=== PATIENT | male | born 1945 | race Caucasian/White ===

== ENCOUNTER → 2019-09-24 09:05 | Outpatient (CLI) | payer MEDICARE, SELFPAY ==
[2019-09-24 10:25] LABS: Hemoglobin A1C% w Est Avg Glu 5.2 % (4.0-6.0)
== END ==
PROVIDERS: PCP Internal Medicine; Visit Provider Internal Medicine Cardiovascular Disease
DX: R73.9 Hyperglycemia, unspecified (principal)
CPT/HCPCS: 36415; 83036

== ENCOUNTER → 2020-06-22 07:29 | Outpatient (CLI) | payer MEDICARE, SELFPAY ==
[2020-06-22 08:48] LABS: Alanine Aminotransferase 27 IU/L (<50); Albumin Globulin Ratio 1.5 (1.0-2.8); Alkaline Phosphatase 88 U/L (38-126); Aspartate Aminotransferase 35 IU/L (17-59); BUN Creatinine Ratio 27.4 (6-22); Bilirubin Total 0.7 mg/dL (0.2-1.3); Blood Urea Nitrogen 17 mg/dL (9-20); Calcium 9.5 mg/dL (8.4-10.2); Carbon Dioxide 29 mmol/L (22-32); Chloride 104 mmol/L (98-107); Estimated Glomerular Filt Rate > 60.0 mL/min (>60); Globulin 2.7 g/dL (1.7-4.1); Glucose 98 mg/dL (80-110); HEMOLYSIS < 15 (0-50); Potassium 4.4 mmol/L (3.4-5.1); Sodium 137 mmol/L (137-145); Total Protein 6.7 g/dL (6.3-8.2)
== END ==
PROVIDERS: PCP Internal Medicine; Referring Provider Internal Medicine Cardiovascular Disease; Visit Provider Internal Medicine Cardiovascular Disease
DX: E78.00 Pure hypercholesterolemia, unspecified (principal); I25.10 Atherosclerotic heart disease of native coronary artery without angina pectoris; I65.23 Occlusion and stenosis of bilateral carotid arteries
CPT/HCPCS: 36415; 80053; 80061; 83704

== ENCOUNTER → 2021-06-06 08:07 | Outpatient (CLI) | payer MEDICARE, OTHER, SELFPAY ==
[2021-06-06 09:53] LABS: Alanine Aminotransferase 24 IU/L (<50); Albumin 4.2 g/dL (3.5-5.0); Albumin Globulin Ratio 1.8 (1.0-2.8); Alkaline Phosphatase 91 U/L (38-126); Aspartate Aminotransferase 34 IU/L (17-59); BUN Creatinine Ratio 30.9 (6-22); Bilirubin Total 0.8 mg/dL (0.2-1.3); Blood Urea Nitrogen 21 mg/dL (9-20); Calcium 9.4 mg/dL (8.4-10.2); Carbon Dioxide 30 mmol/L (22-32); Chloride 103 mmol/L (98-107); Estimated Glomerular Filt Rate > 60.0 mL/min (>60); Globulin 2.3 g/dL (1.7-4.1); Glucose 94 mg/dL (80-110); HEMOLYSIS < 15 (0-50); Potassium 4.6 mmol/L (3.4-5.1); Sodium 140 mmol/L (137-145); Total Protein 6.5 g/dL (6.3-8.2)
[2021-06-08 08:36] LABS: Cholesterol, Total 162 mg/dL (100-199); HDL-Cholesterol 81 mg/dL (>39); HDL-Particle (Total) 43.6 umol/L (>=30.5); LDL Particle 1088 nmol/L (<1000); LDL Size 20.6 nm (>20.5); LDL-Cholsterol 67 mg/dL (0-99); LP-IR Score <25 (<=45); Small LDL- Particle 439 nmol/L (<=527); Triglycerides 73 mg/dL (0-149)
== END ==
PROVIDERS: PCP Student in an Organized Health Care Education/Training Program; Referring Provider Internal Medicine Cardiovascular Disease; Visit Provider Internal Medicine Cardiovascular Disease
DX: E78.00 Pure hypercholesterolemia, unspecified (principal)
CPT/HCPCS: 36415; 80053; 80061; 83704

== ENCOUNTER → 2021-10-09 08:07 | Outpatient (CLI) | payer MEDICARE, OTHER, SELFPAY ==
[2021-10-09 09:50] LABS: Alanine Aminotransferase 22 IU/L (<50); Albumin 4.2 g/dL (3.5-5.0); Albumin Globulin Ratio 1.9 (1.0-2.8); Alkaline Phosphatase 73 U/L (38-126); Aspartate Aminotransferase 29 IU/L (17-59); BUN Creatinine Ratio 28.8 (6-22); Bilirubin Total 0.7 mg/dL (0.2-1.3); Blood Urea Nitrogen 23 mg/dL (9-20); Calcium 9.5 mg/dL (8.4-10.2); Carbon Dioxide 31 mmol/L (22-32); Chloride 105 mmol/L (98-107); Cholesterol 111 mg/dL (140-199); Estimated Glomerular Filt Rate > 60.0 mL/min (>60); Globulin 2.2 g/dL (1.7-4.1); Glucose 94 mg/dL (80-110); HDL Cholesterol 63 mg/dL (40-60); HEMOLYSIS < 15 (0-50); LDL Cholesterol Calculated 37 mg/dL (<100); Potassium 4.6 mmol/L (3.4-5.1); Sodium 139 mmol/L (137-145); Total Protein 6.4 g/dL (6.3-8.2); Triglycerides 55 mg/dL (35-150)
[2021-10-11 08:14] LABS: Cholesterol, Total 113 mg/dL (100-199); HDL-Cholesterol 63 mg/dL (>39); LDL Particle 573 nmol/L (<1000); LDL Size 19.8 nm (>20.5); LDL-Cholsterol 38 mg/dL (0-99); LP-IR Score <25 (<=45); Small LDL- Particle 386 nmol/L (<=527); Triglycerides 49 mg/dL (0-149)
== END ==
PROVIDERS: PCP Student in an Organized Health Care Education/Training Program; Referring Provider Internal Medicine Cardiovascular Disease; Visit Provider Internal Medicine Cardiovascular Disease
DX: E78.00 Pure hypercholesterolemia, unspecified (principal)
CPT/HCPCS: 36415; 80053; 80061; 83704

== ENCOUNTER 2022-01-23 10:33 | Emergency (ER) | payer MEDICARE, OTHER, SELFPAY ==
[2022-01-23 10:46] VITALS: BP 135/79; PULSE 48; RESP 20; TEMP 36.6; O2SAT 99; BMI 25.8
--- NOTE | 2022-01-23 10:55 | DI.RAD.S_ITS ---
PROCEDURE: XR CHEST 1V INDICATIONS: chest pain TECHNIQUE: One view of the chest was acquired. COMPARISON: [facility], , CHEST 1 VIEW, 01/16/2015, 3:41. FINDINGS: Surgical changes and devices: Sternotomy and CABG. Lungs and pleura: Lungs are clear. No pleural effusions or pneumothorax. Mediastinum: Mediastinal contours appear normal. Heart size is normal. Bones and chest wall: No suspicious bony lesions. Overlying soft tissues appear unremarkable. IMPRESSION: No acute cardiopulmonary disease. Dictated by: Evon Campos M.D. on 01/23/2022 at 11:32 Approved by: Evon Campos M.D. on 01/23/2022 at 11:33
[2022-01-23 11:18] LABS: Add Manual Diff / Slide Review NO; Basophils Absolute Auto 0 /uL (0-100); Basophils Percent Auto 0.5 % (0-2); Eosinophils Absolute Auto 100 /uL (0-450); Eosinophils Percent Auto 1.3 % (2-4); Hematocrit 41.6 % (41-53); Hemoglobin 14.3 g/dL (13.5-17.5); Lymphocytes Absolute Auto 1800 /uL (1100-4500); Lymphocytes Percent Auto 28.7 % (25-40); Mean Corpuscular HGB Conc 34.4 % (30-36); Mean Corpuscular Hemoglobin 33.2 PG (26-34); Mean Corpuscular Volume 96.3 fL (80-100); Monocytes Absolute Auto 600 /uL (0-900); Monocytes Percent Auto 10.2 % (3-14); Neutrophils Absolute Auto 3800 /uL (1500-7000); Neutrophils Percent Auto 59.3 % (50-75); Platelet Count 184 X10^3/uL (150-400); Red Blood Cell Count 4.32 X10^6/uL (4.5-5.9); Red Cell Distribution Width 12.6 % (11.6-14.8); White Blood Cell Count 6.4 X10^3/uL (4.5-11.0)
[2022-01-23 11:28] LABS: Alanine Aminotransferase 23 IU/L (<50); Albumin 4.6 g/dL (3.5-5.0); Albumin Globulin Ratio 1.8 (1.0-2.8); Alkaline Phosphatase 73 U/L (38-126); Aspartate Aminotransferase 30 IU/L (17-59); Bilirubin Total 1.1 mg/dL (0.2-1.3); Blood Urea Nitrogen 21 mg/dL (9-20); Calcium 9.1 mg/dL (8.4-10.2); Carbon Dioxide 29 mmol/L (22-32); Chloride 102 mmol/L (98-107); Creatine Kinase 67 U/L (55-170); Estimated Glomerular Filt Rate > 60 mL/min (>60); Globulin 2.6 g/dL (1.7-4.1); Glucose 99 mg/dL (80-110); HEMOLYSIS < 15 (0-50); Lipase 66 U/L (23-300); Magnesium 2.2 mg/dL (1.6-2.3); Potassium 4.2 mmol/L (3.4-5.1); Sodium 137 mmol/L (137-145); Total Protein 7.2 g/dL (6.3-8.2)
--- NOTE | 2022-01-23 11:36 | ED.GENADULT ---
HPI - General Adult General Chief complaint: Dizziness Stated complaint: off balance and wobblie since yesterday Time Seen by Provider: 01/23/22 11:36 Source: patient Mode of arrival: Family Vehicle History of Present Illness HPI narrative: 76-year-old gentleman with a history of coronary disease, 4 vessel bypass, cervical arthritis and no prior strokes presents complaining that he had an acute dizzy spell approximately 5:00 p.m. last night his noticed that he was a bit more unstable when he got up in the middle of the night and this morning had dramatically increased gait abnormalities with worsening dizziness. He does note that he has had 1 of his 2 cataracts corrected and there is some visual asymmetries because of that. He notes that he usually ?off? in the morning because of arthritic pains. Once he is up and moving around seems to be doing well. He has had some gait instability and has been working with physical therapy and does seem to be making progress. The findings over the last 24 hours are notably different. Review of systems he also complains of fatigue. No fevers, cough, chills, vomiting, diarrhea, significant headaches, abdominal pain, palpitations, orthopnea or exertional dyspnea Related Data Allergies Allergy/AdvReac Type Severity Reaction Status Date / Time No Known Drug Allergies Allergy Verified 01/23/22 10:54 Review of Systems Review of Systems Narrative: Remainder of complete review of systems is otherwise unremarkable except for that included in the HPI. Patient History Medical History (Updated 01/23/22 @ 17:41 by Mely Powers MD) Coronary artery disease Hyperlipidemia Surgical History (Updated 01/23/22 @ 17:35 by Mely Powers MD) Hx of CABG Social History Smoking Status: Former smoker Smoking Status: Former smoker alcohol intake frequency: a few times a month Substance Use Type: does not use Exam Initial Vital Signs Initial Vital Signs: Vital Signs Temperature 97.9 F 01/23/22 10:46 Pulse Rate 48 L 01/23/22 10:46 Respiratory Rate 20 01/23/22 10:46 Blood Pressure 135/79 01/23/22 10:46 Pulse Oximetry 99 01/23/22 10:46 General: Healthy appearing, in no acute distress. Able to give a complete and coherent history. Well-nourished well-developed HEENT: Moist mucous membranes, normal sclera with reactive pupils, Neck: No JVD, supple Respiratory: Lungs are clear to auscultation, no wheezing no rales no rhonchi. Full and symmetrical air movement Cardiac: Regular rate and rhythm. 3/6 murmur is appreciated. No bruits. Abdomen: Soft, nontender, good bowel tones, no flank pain Skin: Warm and dry, no rashes Neurologic: Mild ataxia without significantly wide-based gait. Difficulty with heel-toe walking with mild instability, negative Romberg, no difficulty with limb ataxia. No localizing weakness. NIH score is 0. Extremities: No trauma, well perfused Psych: Cooperative, appropriate insight and affect Course Orders Ordered: ED Orders 01/23/22 10:55 XR chest 1V Stat EKG-12 Lead Stat 01/23/22 11:02 Complete Blood Count AUTO DIFF Stat Comprehensive Metabolic Panel Stat Lipase Stat Magnesium Stat Troponin & CK Cardiac Panel Stat 01/23/22 16:11 MR stroke Stat Vital Signs Vital signs: Vital Signs - 8 hr 01/23/22 10:46 Temperature 97.9 F Pulse Rate 48 L Respiratory Rate 20 Blood Pressure 135/79 Pulse Oximetry 99 Medical Decision Making Lab Data Result diagrams: 01/23/22 11:02 01/23/22 11:02 Labs: Lab Results 01/23/22 01/23/22 Range/Units 11:02 11:02 WBC 6.4 (4.5-11.0) X10^3/uL RBC 4.32 L (4.5-5.9) X10^6/uL Hgb 14.3 (13.5-17.5) g/dL Hct 41.6 (41-53) % MCV 96.3 (80-100) fL MCH 33.2 (26-34) PG MCHC 34.4 (30-36) % RDW 12.6 (11.6-14.8) % Plt Count 184 (150-400) X10^3/uL Neut % (Auto) 59.3 (50-75) % Lymph % (Auto) 28.7 (25-40) % [place] % (Auto) 10.2 (3-14) % Eos % (Auto) 1.3 L (2-4) % Baso % (Auto) 0.5 (0-2) % Neut # (Auto) 3800 (9355-4640) /uL Lymph # (Auto) 1800 (9598-6670) /uL [place] # (Auto) 600 (0-900) /uL Eos # (Auto) 100 (0-450) /uL Baso # (Auto) 0 (0-100) /uL Sodium 137 (137-145) mmol/L Potassium 4.2 (3.4-5.1) mmol/L Chloride 102 (98-107) mmol/L Carbon Dioxide 29 (22-32) mmol/L BUN 21 H (9-20) mg/dL Creatinine 0.75 (0.66-1.25) mg/dL Estimated GFR > 60 (>60) mL/min BUN/Creatinine Ratio 28.0 H (6-22) Glucose 99 (80-110) mg/dL Calcium 9.1 (8.4-10.2) mg/dL Magnesium 2.2 (1.6-2.3) mg/dL Total Bilirubin 1.1 (0.2-1.3) mg/dL AST 30 (17-59) IU/L ALT 23 (<50) IU/L Alkaline Phosphatase 73 (38-126) U/L Total Creatine Kinase 67 (55-170) U/L CK-MB (CK-2) TNP CK-MB (CK-2) Rel Index TNP Troponin I < 0.012 (0.01-0.034) ng/mL Total Protein 7.2 (6.3-8.2) g/dL Albumin 4.6 (3.5-5.0) g/dL Globulin 2.6 (1.7-4.1) g/dL Albumin/Globulin Ratio 1.8 (1.0-2.8) Lipase 66 (23-300) U/L Urine Dip Bedside Urine Glucose Negative Bedside Urine Bilirubin - Negative Bedside Urine Ketone - Negative Urine Specific [place] 1.005 Bedside Urine Occult Blood - Negative Bedside Urine pH 7 Bedside Urine Protein - Negative Bedside Urine Urobilinogen - Negative Bedside Urine Nitrite - Negative Bedside Urine Leukocytes - Negative Esterase Point of care testing: Urine Dip Bedside Urine Glucose Negative Bedside Urine Bilirubin - Negative Bedside Urine Ketone - Negative Urine Specific [place] 1.005 Bedside Urine Occult Blood - Negative Bedside Urine pH 7 Bedside Urine Protein - Negative Bedside Urine Urobilinogen - Negative Bedside Urine Nitrite - Negative Bedside Urine Leukocytes - Negative Esterase MDM Narrative Medical decision making narrative: 76-year-old gentleman with a history of coronary artery disease post CABG complains of acute episode of dizziness at 5:00 p.m. last night and worsening gait instability/ataxia today. Labs are reassuring with no evidence of acute infection. MRI of the brain shows no acute infarct or significant anomalies of require hospitalization or additional workup at this time. He was incidentally noted to have heart murmur on exam today. Have recommended that he follow-up with Neurology regarding the gait instability. He is given copies of today's notes including labs and MRI reports. He is following up with Ophthalmology tomorrow for his 2nd cataract surgery to be scheduled. If recommend that he briefly review a follow-up appointment with his backup operator as he was unaware of the murmur that was noted on today's exam. All findings reviewed with patient and his . Questions were answered and he is safe for home discharge Discharge Plan Departure Patient Disposition: Home Clinical Impression: Ataxia, Dizziness, Heart murmur Instructions: DI for Acute Cerebellar Ataxia Activity Restrictions/Additional Instructions: Thank you for coming in today and for being so patient with the extended wait in the emergency department. Fortunately we were able to facilitate an MRI of your brain. The MRI is reassuring and does not show an acute stroke as an explanation for the dizziness nor slight increase in your gait instability (ataxia) today. As we discussed, in the emergency department I can reassure you that you do not have a life-threatening diagnosis nor need to be admitted to the hospital however you do still frequently need to be seen by your outpatient doctors for definitive diagnosis. That is the case today. I would recommend that you follow-up with your neurologist to see if they have any additional recommendations. I would also recommend continuing physical therapy. An incidental heart murmur was appreciated today. I your unaware of any history of heart murmurs. I would suggest that you discuss this with your backup operator. This does not sound like at a life-threatening murmur but should be further evaluated. If you find that you are getting worse or develop any new symptoms, please feel free to return to the emergency department for further evaluation. Referrals: Tri Mir MD [Primary Care Provider] -
[2022-01-23 11:39] LABS: Troponin I < 0.012 ng/mL (0.01-0.034)
--- NOTE | 2022-01-23 16:11 | DI.MRI.S_ITS ---
PROCEDURE: MR STROKE Pre- and post-contrast brain MRI, non-contrast brain MR angiogram, pre- and postcontrast neck MR angiogram INDICATIONS: acute gait instability and dizziness TECHNIQUE: Brain: Noncontrast axial T1 spin echo, axial T2 fast spin echo, sagittal and axial FLAIR, coronal T2 fast spin echo, axial gradient echo, axial diffusion and ADC through the brain. After the administration of contrast, axial 3D VIBE of the cranial vasculature and brain. Brain MRA: Non-contrast 3-D time of flight MR angiogram, with multiple qiousro-aeetvbrdb-sgiefdljll (MIP) reformats performed. Neck MRA: Axial and sagittal TruFISP through the neck. Coronal dynamic MR angiogram during administration of contrast in the arterial and venous phases, with 3-dimenstional utrpyki-gptzjsnns-wmswlphngo (MIP) reformats constructed from subtraction images. COMPARISON: None. FINDINGS: Image quality: Excellent. BRAIN: CSF spaces: Ventricles are normal in size and shape. Basal cisterns are patent. No extra-axial fluid collections. Brain: No intracranial bleeds or mass effects. Mustafa-white matter interface is normal. Diffusion weighted images show no acute ischemic insults. Brainstem appears normal. Normal intravascular flow voids are present. No abnormal intracranial enhancement. Skull and face: Calvarial marrow signal is normal. Orbits appear normal. Sinuses: Sinuses and mastoids are clear. BRAIN MR ANGIOGRAM: Anterior circulation: Intracranial internal carotid arteries are normal in size and enhancement. The flow within the paired anterior cerebral arteries is normal and symmetric. The flow within the middle cerebral arteries is normal and symmetric. The anterior communicating artery is seen. No stenosis or aneurysms or occlusions Posterior circulation: Normal variant origin of the right posterior cerebral artery off of the anterior circulation. The visualized portions of the vertebral arteries demonstrate normal caliber, and join to form a normal appearing basilar artery. The flow within the posterior cerebral arteries is normal and symmetric. No stenosis or occlusions or aneurysms. NECK MR ANGIOGRAM: Carotids: Great vessels demonstrate a conventional anatomy as they arise from the aortic arch. The origins of the common carotid arteries appear patent. The calibers and courses of both common carotid arteries are normal. The bifurcation regions appear normal bilaterally. The internal carotid arteries demonstrate normal course and caliber. Posterior circulation: The origins of the vertebral arteries appear patent. More superior portions of both vertebral arteries demonstrate normal course and caliber, and join to form a normal appearing basilar artery. Miscellaneous: Subclavian arteries appear patent. Pre-contrast images through the neck show no soft tissue abnormalities. IMPRESSION: BRAIN MRI: 1. No evidence acute stroke, hemorrhage, or mass. 2. Age-related volume loss and moderate small vessel ischemic change. BRAIN MR ANGIOGRAM: Normal variant origin of the right posterior cerebral artery off the anterior circulation. Otherwise unremarkable, with stenosis, filling defect, occlusion, or aneurysm. NECK MR ANGIOGRAM: Unremarkable. Widely patent carotids. Dictated by: Desmond Jaramillo M.D. on 01/23/2022 at 17:04 Approved by: Desmond Jaramillo M.D. on 01/23/2022 at 17:11
[2022-01-23 17:44] VITALS: PULSE 47; O2SAT 93
[2022-01-23 17:48] VITALS: BP 136/69; PULSE 50; O2SAT 99
[2022-01-23 17:59] VITALS: BP 136/69; PULSE 49; RESP 18; O2SAT 100
== END 2022-01-23 18:04 | disposition home or self-care (01) ==
PROVIDERS: Emergency Provider Emergency Medicine; PCP Student in an Organized Health Care Education/Training Program
DX: R27.0 Ataxia, unspecified (principal); R01.1 Cardiac murmur, unspecified; R53.83 Other fatigue
CPT/HCPCS: 36415; 70548; 70553; 71045; 80053; 81003; 82550; 83690; 83735; 84484; 85025; 93005; 99284; A9579

== ENCOUNTER → 2022-04-23 07:11 | Outpatient (CLI) | payer MEDICARE, OTHER, SELFPAY ==
[2022-04-23 08:32] LABS: Add Manual Diff / Slide Review NO; Basophils Absolute Auto 0 /uL (0-100); Basophils Percent Auto 0.5 % (0-2); Eosinophils Absolute Auto 200 /uL (0-450); Eosinophils Percent Auto 3.5 % (2-4); Hematocrit 40.3 % (41-53); Hemoglobin 13.9 g/dL (13.5-17.5); Lymphocytes Absolute Auto 1500 /uL (1100-4500); Lymphocytes Percent Auto 28.8 % (25-40); Mean Corpuscular HGB Conc 34.5 % (30-36); Mean Corpuscular Hemoglobin 33.2 PG (26-34); Monocytes Absolute Auto 600 /uL (0-900); Monocytes Percent Auto 12.5 % (3-14); Neutrophils Absolute Auto 2800 /uL (1500-7000); Neutrophils Percent Auto 54.7 % (50-75); Platelet Count 187 X10^3/uL (150-400); Red Cell Distribution Width 13.4 % (11.6-14.8); White Blood Cell Count 5.2 X10^3/uL (4.5-11.0)
[2022-04-23 08:43] LABS: Hemoglobin A1C% w Est Avg Glu 5.5 % (4.0-6.0)
[2022-04-23 10:30] LABS: Alanine Aminotransferase 24 IU/L (<50); Albumin Globulin Ratio 1.7 (1.0-2.8); Alkaline Phosphatase 73 U/L (38-126); Aspartate Aminotransferase 31 IU/L (17-59); BUN Creatinine Ratio 31.9 (6-22); Bilirubin Total 0.8 mg/dL (0.2-1.3); Blood Urea Nitrogen 22 mg/dL (9-20); Calcium 9.2 mg/dL (8.4-10.2); Carbon Dioxide 31 mmol/L (22-32); Chloride 102 mmol/L (98-107); Cholesterol 127 mg/dL (140-199); Estimated Glomerular Filt Rate > 60 mL/min (>60); Globulin 2.4 g/dL (1.7-4.1); Glucose 93 mg/dL (80-110); HDL Cholesterol 69 mg/dL (40-60); HEMOLYSIS < 15 (0-50); LDL Cholesterol Calculated 45 mg/dL (<100); Potassium 4.4 mmol/L (3.4-5.1); Sodium 139 mmol/L (137-145); Total Protein 6.4 g/dL (6.3-8.2); Triglycerides 63 mg/dL (35-150)
== END ==
PROVIDERS: PCP Family Medicine; Referring Provider Internal Medicine; Visit Provider Internal Medicine
DX: I10 Essential (primary) hypertension (principal); R53.83 Other fatigue; I65.23 Occlusion and stenosis of bilateral carotid arteries; E78.3 Hyperchylomicronemia; R42 Dizziness and giddiness
CPT/HCPCS: 36415; 80053; 80061; 83036; 84443; 85025

== ENCOUNTER → 2022-07-20 09:01 | Outpatient (CLI) | payer MEDICARE, OTHER, SELFPAY ==
[2022-07-20 11:25] LABS: Alanine Aminotransferase 27 IU/L (<50); Albumin 4.2 g/dL (3.5-5.0); Albumin Globulin Ratio 1.6 (1.0-2.8); Alkaline Phosphatase 83 U/L (38-126); Aspartate Aminotransferase 31 IU/L (17-59); BUN Creatinine Ratio 29.7 (6-22); Bilirubin Total 0.9 mg/dL (0.2-1.3); Blood Urea Nitrogen 22 mg/dL (9-20); Calcium 9.3 mg/dL (8.4-10.2); Carbon Dioxide 27 mmol/L (22-32); Chloride 103 mmol/L (98-107); Estimated Glomerular Filt Rate > 60 mL/min (>60); Globulin 2.7 g/dL (1.7-4.1); Glucose 91 mg/dL (80-110); HEMOLYSIS < 15 (0-50); Potassium 4.1 mmol/L (3.4-5.1); Sodium 138 mmol/L (137-145); Total Protein 6.9 g/dL (6.3-8.2)
[2022-07-22 12:01] LABS: Cholesterol, Total 164 mg/dL (100-199); HDL-Cholesterol 75 mg/dL (>39); LDL Particle 897 nmol/L (<1000); LDL Size 20.6 nm (>20.5); LDL-Cholsterol 70 mg/dL (0-99); LP-IR Score 41 (<=45); Small LDL- Particle 475 nmol/L (<=527); Triglycerides 107 mg/dL (0-149)
== END ==
PROVIDERS: PCP Family Medicine; Referring Provider Internal Medicine Cardiovascular Disease; Visit Provider Internal Medicine Cardiovascular Disease
DX: E78.00 Pure hypercholesterolemia, unspecified (principal)
CPT/HCPCS: 36415; 80053; 80061; 83704

== ENCOUNTER → 2023-01-07 10:00 | Outpatient (CLI) | payer MEDICARE, OTHER, SELFPAY ==
[2023-01-07 11:07] LABS: Alanine Aminotransferase 26 IU/L (<50); Albumin 4.3 g/dL (3.5-5.0); Albumin Globulin Ratio 1.7 (1.0-2.8); Alkaline Phosphatase 84 U/L (38-126); Aspartate Aminotransferase 31 IU/L (17-59); BUN Creatinine Ratio 34.2 (6-22); Bilirubin Total 0.7 mg/dL (0.2-1.3); Blood Urea Nitrogen 26 mg/dL (9-20); Carbon Dioxide 30 mmol/L (22-32); Chloride 103 mmol/L (98-107); Estimated Glomerular Filt Rate > 60 mL/min (>60); Globulin 2.6 g/dL (1.7-4.1); Glucose 92 mg/dL (80-110); HEMOLYSIS < 15 (0-50); Potassium 4.1 mmol/L (3.4-5.1); Sodium 138 mmol/L (137-145); Total Protein 6.9 g/dL (6.3-8.2)
[2023-01-10 14:58] LABS: Cholesterol, Total 123 mg/dL (100-199); HDL-Cholesterol 74 mg/dL (>39); HDL-Particle (Total) 41.8 umol/L (>=30.5); Historical Reading Comment: (.); LDL Particle 683 nmol/L (<1000); LDL-Cholsterol 36 mg/dL (0-99); LP-IR Score 39 (<=45); Small LDL- Particle 441 nmol/L (<=527); Triglycerides 62 mg/dL (0-149)
== END ==
PROVIDERS: PCP Internal Medicine; Referring Provider Internal Medicine Cardiovascular Disease; Visit Provider Internal Medicine Cardiovascular Disease
DX: E78.00 Pure hypercholesterolemia, unspecified (principal)
CPT/HCPCS: 36415; 80053; 80061; 83704

== ENCOUNTER → 2023-03-18 17:36 | Outpatient (CLI) | payer MEDICARE, OTHER, SELFPAY ==
--- NOTE | 2023-03-18 17:38 | DI.RAD.S_ITS ---
PROCEDURE: XR RIBS LT MIN 3V W CXR1V INDICATIONS: left rib pain TECHNIQUE: 2 views of the left ribs were acquired, along with a single view chest. COMPARISON: [facility], , XR CHEST 1V, 01/23/2022, 11:05. FINDINGS: Surgical changes and devices: Prior median sternotomy. Bones and chest wall: Acute mildly displaced fractures of the left posterior 4th, 5th, 6th ribs. Lungs and pleura: No pleural effusions or pneumothorax. Lungs appear clear. Mediastinum: Mediastinal contours appear normal. Heart size is normal. IMPRESSION: Acute mildly displaced fractures of the left posterior 4th, 5th, 6th ribs. No pneumothorax identified. Dictated by: Faraz Rain M.D. on 03/19/2023 at 18:07 Approved by: Faraz Rain M.D. on 03/19/2023 at 18:14
== END ==
PROVIDERS: PCP Internal Medicine; Referring Provider Internal Medicine; Visit Provider Internal Medicine
DX: S22.42XA Multiple fractures of ribs, left side, initial encounter for closed fracture (principal); R07.81 Pleurodynia
CPT/HCPCS: 71101

== ENCOUNTER → 2023-04-09 09:03 | Outpatient (CLI) | payer MEDICARE, OTHER, SELFPAY ==
--- NOTE | 2023-04-09 09:04 | DI.RAD.S_ITS ---
PROCEDURE: XR CHEST 2V INDICATIONS: chest pain/rib fx TECHNIQUE: 2 views of the chest were acquired. COMPARISON: [facility], [place], XR CHEST 1V, 01/23/2022, 11:05. [facility], [place], CHEST 1 VIEW, 01/16/2015, 3:41. [facility], CR, XR RIBS LT MIN 3V W CXR1V, 03/18/2023, 17:56. FINDINGS: Surgical changes and devices: Sternotomy wires. Lungs and pleura: No dense consolidation or pleural effusion. Mediastinum: Heart size is within normal limits. Bones and chest wall: Mildly displaced fractures again seen of the left upper posterior ribs, relatively unchanged allowing for differences in technique. IMPRESSION: Allowing for differences in technique, unchanged appearance of left posterior upper rib fractures. Dictated by: Hamlet Campoverde M.D. on 04/09/2023 at 13:28 Approved by: Hamlet Campoverde M.D. on 04/09/2023 at 13:30
[2023-04-09 11:26] LABS: Hemoglobin 14.1 g/dL (13.5-17.5); Mean Corpuscular HGB Conc 34.3 % (30-36); Mean Corpuscular Hemoglobin 33.2 PG (26-34); Mean Corpuscular Volume 96.9 fL (80-100); Platelet Count 210 X10^3/uL (150-400); Red Blood Cell Count 4.24 X10^6/uL (4.5-5.9); Red Cell Distribution Width 12.8 % (11.6-14.8); White Blood Cell Count 5.8 X10^3/uL (4.5-11.0)
[2023-04-09 12:03] LABS: Alanine Aminotransferase 32 IU/L (<50); Albumin 4.3 g/dL (3.5-5.0); Albumin Globulin Ratio 1.6 (1.0-2.8); Alkaline Phosphatase 109 U/L (38-126); Aspartate Aminotransferase 44 IU/L (17-59); BUN Creatinine Ratio 30.9 (6-22); Bilirubin Total 0.9 mg/dL (0.2-1.3); Blood Urea Nitrogen 21 mg/dL (9-20); Calcium 9.1 mg/dL (8.4-10.2); Carbon Dioxide 30 mmol/L (22-32); Chloride 102 mmol/L (98-107); Estimated Glomerular Filt Rate > 60 mL/min (>60); Globulin 2.7 g/dL (1.7-4.1); Glucose 96 mg/dL (80-110); HEMOLYSIS 23 (0-50); Potassium 4.3 mmol/L (3.4-5.1); Sodium 139 mmol/L (137-145)
== END ==
PROVIDERS: PCP Internal Medicine; Referring Provider Internal Medicine; Visit Provider Internal Medicine
DX: S22.42XA Multiple fractures of ribs, left side, initial encounter for closed fracture (principal); R10.12 Left upper quadrant pain
CPT/HCPCS: 36415; 71046; 80053; 85027

== ENCOUNTER → 2023-04-11 07:56 | Outpatient (CLI) | payer MEDICARE, OTHER, SELFPAY ==
--- NOTE | 2023-04-11 07:58 | DI.CT.S_ITS ---
PROCEDURE: CT ABDOMEN PELVIS W CON INDICATIONS: LUQ pain, trauma TECHNIQUE: After the administration of oral and intravenous contrast, axial sections were acquired from the lung bases to the pubic symphysis. Coronal and sagittal reformats were performed. For radiation dose reduction, the following was used: automated exposure control, adjustment of mA and/or kV according to patient size. COMPARISON:None. FINDINGS: Image quality: Excellent. Lung bases: 7 mm solid nodule, right lower lobe (series 3, image 24). Heart: No significant findings. ABDOMEN: Liver: Subcentimeter hypoattenuating lesion, too small to characterize by CT. Gallbladder: Unremarkable. Biliary ducts: Unremarkable. Pancreas: Unremarkable. Spleen: Unremarkable. Adrenal Glands: 3 cm right adrenal nodule. Kidneys and Ureters: Unremarkable. Stomach and Bowel: Stomach, small bowel loops, and colon are unremarkable. Peritoneum: No abnormal intraperitoneal fluid. No free air. Ventral Wall: No hernia. Abdominal Nodes: No retroperitoneal or mesenteric adenopathy by size criteria. Vessels: Aorta and inferior vena cava are normal in size. PELVIS: Pelvic Organs: Unremarkable. Bladder: Unremarkable. Pelvic Nodes: No enlarged lymph nodes. Miscellaneous: No inguinal hernias are seen. Bones: Healing left lateral 10th, 9th, 7th rib fractures. Grade 1 anterolisthesis of L5 on S1 secondary to facet arthrosis. Multilevel degenerative disc disease. IMPRESSION: Healing left lateral 7th, 9th and 10th rib fractures. No findings to explain the patient's bloating. Right adrenal nodule with indeterminate attenuation measuring 3 cm. Recommend dedicated adrenal CT or MRI (adrenal mass protocol). Dictated by: Shawn Hutchison M.D. on 04/11/2023 at 11:37 Approved by: Shawn Hutchison M.D. on 04/11/2023 at 11:42
== END ==
PROVIDERS: PCP Internal Medicine; Referring Provider Internal Medicine; Visit Provider Internal Medicine
DX: E27.9 Disorder of adrenal gland, unspecified (principal); R10.12 Left upper quadrant pain; S22.42XD Multiple fractures of ribs, left side, subsequent encounter for fracture with routine healing
CPT/HCPCS: 74177; Q9967

== ENCOUNTER → 2023-04-23 11:46 | Outpatient (CLI) | payer MEDICARE, OTHER, SELFPAY ==
--- NOTE | 2023-04-23 11:47 | DI.CT.S_ITS ---
PROCEDURE: CT ABDOMEN ADRENAL PROTOCOL INDICATIONS: adrenal mass TECHNIQUE: Noncontrast 3 mm thick sections acquired from the diaphragms to the iliac crests. After the administration of intravenous contrast, 3 mm thick venous-phase and 15-minute delayed images acquired from the diaphragms to the iliac crests. For radiation dose reduction, the following was used: automated exposure control, adjustment of mA and/or kV according to patient size. COMPARISON: None. FINDINGS: Image quality: Excellent. Lung bases: Lung bases are clear. Heart size is normal. Adrenal glands: 3.3 cm right adrenal nodule with benign attenuation (-9 Hounsfield unit), most consistent with a benign adrenal adenoma. Solid organs: Liver is normal in size and enhancement. A subcentimeter hypoattenuating lesions, too small to characterize by CT. Gallbladder is unremarkable . Biliary system is non dilated. Pancreas enhances normally. Spleen is normal in size and enhancement. Kidneys are normal in size and enhancement. No hydronephrosis or nephrolithiasis. Peritoneum and bowel: Unenhanced bowel loops are normal in caliber and wall thickness. No free fluid or air. Nodes and vessels: No retroperitoneal or mesenteric adenopathy by size criteria. Aorta and inferior vena cava are normal in size. Miscellaneous: No ventral hernias. Bones: No suspicious bony lesions. No vertebral body compression fractures. Grade 1 anterolisthesis of L5 on S1. Grade 1 retrolisthesis of L3 on L4, L2 on L3 and L1 on L2. IMPRESSION: 3.3 cm right adrenal adenoma by Hounsfield units criteria (-9 Hounsfield unit). Dictated by: Shawn Hutchison M.D. on 04/23/2023 at 13:58 Approved by: Shawn Hutchison M.D. on 04/23/2023 at 14:01
== END ==
PROVIDERS: PCP Internal Medicine; Referring Provider Internal Medicine; Visit Provider Internal Medicine
DX: D35.01 Benign neoplasm of right adrenal gland (principal)
CPT/HCPCS: 74170; Q9967

== ENCOUNTER → 2023-07-17 07:34 | Outpatient (CLI) | payer MEDICARE, OTHER, SELFPAY ==
--- NOTE | 2023-07-17 07:35 | DI.RAD.S_ITS ---
PROCEDURE: XR SHOULDER RT MIN 2V INDICATIONS: right shoulder injury/pain TECHNIQUE: 3 views of the shoulder were acquired. COMPARISON: None. FINDINGS: Bones: No fractures or dislocations. No suspicious bony lesions. Visualized ribs appear intact. Midline sternal wires Soft tissues: No suspicious soft tissue calcifications. IMPRESSION: No acute bony abnormality. Approved by: Nirav Machado M.D. on 07/17/2023 at 18:35
== END ==
PROVIDERS: PCP Internal Medicine; Referring Provider Internal Medicine; Visit Provider Internal Medicine
DX: S49.91XA Unspecified injury of right shoulder and upper arm, initial encounter (principal); M25.511 Pain in right shoulder; X58.XXXA Exposure to other specified factors, initial encounter
CPT/HCPCS: 73030

== ENCOUNTER → 2024-01-02 08:04 | Outpatient (CLI) | payer MEDICARE, OTHER, SELFPAY ==
--- NOTE | 2024-01-02 08:05 | DI.ECHO.S_ITS ---
[facility] : : [address] : : [place] : : [id number] : : Phone: [phone] Echocardiogram Report + + :Name: JANE MINER Study Date: 01/02/2024 Height: 71 in : :Hospital ReadingLocation: Weight: 178 lb : : Gender: Male BSA: 2.0 m2 : :: 1945 Age: 78 yrs BP: 132/80 mmHg: :Reason For Study: DISEASE OF [place] CORONARY ARTERY : :Ordering Physician: : :SHAHIDA DURAN Performed By: Damián Nolasco : :Referring: UNSPECIFIED : + + Interpretation Summary The ejection fraction is estimated to be 50-55%. Possible mid inferior hypokinesis The right ventricle is moderately dilated. The interatrial septum bows toward left atrium consistent with elevated right atrial pressure. There is mild tricuspid regurgitation. The right ventricular systolic pressure is estimated to be at least 22.6 mmHg based on an estimated right atrial pressure of 3 mm Hg. There is mild to moderate aortic regurgitation. Procedure: A two-dimensional transthoracic echocardiogram with color flow and Doppler was performed. The study quality was technically adequate. Comparison is made with the echocardiogram of 01/04/2015. The patient was in normal sinus rhythm during the exam. The heart rate ranged between 48-74 bpm during the study. Left Ventricle: The left ventricle is normal in size and wall thickness. The ejection fraction is estimated to be 50-55%. Possible mid inferior hypokinesis. Right Ventricle: The right ventricle is moderately dilated. The right ventricular systolic function is normal. Atria: The left atrium is moderately dilated. The right atrium is mildly dilated. The interatrial septum grossly appears intact with no obvious evidence for an atrial septal defect. The interatrial septum bows toward left atrium consistent with elevated right atrial pressure. Mitral Valve: The mitral valve is normal in structure and function. There is no mitral valve stenosis. There is trace mitral regurgitation. Aortic Valve: The aortic valve is trileaflet. The aortic valve is mildly calcified. There is no aortic valve stenosis. There is mild to moderate aortic regurgitation. Tricuspid Valve: There has been no significant change since the previous study. There is no tricuspid stenosis. There is mild tricuspid regurgitation. The right ventricular systolic pressure is estimated to be at least 22.6 mmHg based on an estimated right atrial pressure of 3 mm Hg. Pulmonic Valve: The pulmonic valve is not well visualized. There is no pulmonic valvular stenosis. There is a trace or physiologic amount of pulmonic regurgitation. Great Vessels: The aortic root is normal size. The dimensions of the ascending aorta are normal. The IVC is of normal diameter and collapses greater than 50% with a sniff. This suggests a low right atrial pressure of 3 mm Hg. Pericardium/ Pleura There is no pericardial effusion. There is no pleural effusion. MMode/2D Measurements & Calculations LVIDd: 4.9 cm LVOT diam: 3.1 cm LVIDs: 3.2 cm Ao root diam: 2.6 cm FS: 34.7 % asc Aorta Diam: 3.1 cm IVSd: 0.97 cm Ao Arch Diam (Prox Trans): 2.6 cm LVPWd: 1.1 cm LV solis. diameter/BSA (cm/m^2): 2.5 LV sys. diameter/BSA (cm/m^2): 1.6 LA A2 area: 19.5 cm2 RA long axis: 5.1 cm LA A4 area: 19.9 cm2 RA area: 17.2 cm2 LA length (vol): 5.3 cm RA vol: 48.6 ml LA vol: 62.6 ml RA : 24.2 ml/m2 LA vol index: 31.2 ml/m2 IVC diam: 1.6 cm RVD1 (basal): 4.8 cm RVD2 (mid): 4.3 cm TAPSE: 2.0 cm Doppler Measurements & Calculations Ao V2 max: 221.7 cm/sec LVOT Max Pal: 132.6 cm/sec Ao V2 mean: 156.7 cm/sec LV V1 max P.0 mmHg Ao max P.7 mmHg LV V1 VTI: 28.0 cm Ao mean P.9 mmHg FABRIZIO(I,D): 4.2 cm2 Ao V2 VTI: 50.7 cm FABRIZIO(V,D): 4.5 cm2 sev ratio: 0.55 FABRIZIO indexed to BSA (cm^2/m^2): 2.1 AI P1/2t: 899.1 msec AI dec slope: 127.4 cm/sec2 MV E max pal: 61.5 cm/sec TR max pal: 221.2 cm/sec MV A max pal: 75.0 cm/sec TR max P.6 mmHg MV E/A: 0.82 PA V2 max: 163.6 cm/sec Med Peak E' Pal: 5.5 cm/sec PA V2 mean: 116.7 cm/sec E/E' med: 11.2 PA mean P.9 mmHg Lat Peak E' Pal: 6.8 cm/sec PA pr(Accel): 22.5 mmHg E/E' lat: 9.1 E/e' average: 10.1 MV dec time: 0.22 sec SV(LVOT): 210.7 ml Reading Physician:12:49 PM
== END ==
PROVIDERS: PCP Internal Medicine; Referring Provider Internal Medicine Cardiovascular Disease; Visit Provider Internal Medicine Cardiovascular Disease
DX: I25.119 Atherosclerotic heart disease of native coronary artery with unspecified angina pectoris (principal); I08.2 Rheumatic disorders of both aortic and tricuspid valves
CPT/HCPCS: 93306

== ENCOUNTER → 2024-02-06 09:44 | Outpatient (CLI) | payer MEDICARE, OTHER, SELFPAY ==
[2024-02-06 10:48] LABS: Hematocrit 42.1 % (41-53); Hemoglobin 14.5 g/dL (13.5-17.5); Mean Corpuscular HGB Conc 34.4 % (30-36); Mean Corpuscular Hemoglobin 33.5 PG (26-34); Mean Corpuscular Volume 97.2 fL (80-100); Platelet Count 216 X10^3/uL (150-400); Red Blood Cell Count 4.33 X10^6/uL (4.5-5.9); Red Cell Distribution Width 12.8 % (11.6-14.8); White Blood Cell Count 6.6 X10^3/uL (4.5-11.0)
[2024-02-06 11:12] LABS: Alanine Aminotransferase 26 IU/L (<50); Albumin 4.4 g/dL (3.5-5.0); Albumin Globulin Ratio 1.9 (1.0-2.8); Alkaline Phosphatase 96 U/L (38-126); Aspartate Aminotransferase 34 IU/L (17-59); BUN Creatinine Ratio 36.7 (6-22); Bilirubin Total 0.9 mg/dL (0.2-1.3); Blood Urea Nitrogen 29 mg/dL (9-20); Calcium 9.5 mg/dL (8.4-10.2); Carbon Dioxide 32 mmol/L (22-32); Chloride 104 mmol/L (98-107); Creatine Kinase 132 U/L (55-170); Estimated Glomerular Filt Rate > 60 mL/min (>60); Globulin 2.3 g/dL (1.7-4.1); Glucose 89 mg/dL (80-110); HEMOLYSIS < 15 (0-50); Potassium 4.9 mmol/L (3.4-5.1); Sodium 138 mmol/L (137-145); Total Protein 6.7 g/dL (6.3-8.2)
== END ==
PROVIDERS: PCP Internal Medicine; Referring Provider Internal Medicine; Visit Provider Internal Medicine
DX: R53.83 Other fatigue (principal); M60.9 Myositis, unspecified
CPT/HCPCS: 36415; 80053; 82550; 84443; 85027

== ENCOUNTER → 2024-03-18 09:19 | Outpatient (CLI) | payer MEDICARE, OTHER, SELFPAY ==
[2024-03-18 12:25] LABS: Alanine Aminotransferase 25 IU/L (<50); Albumin Globulin Ratio 1.6 (1.0-2.8); Alkaline Phosphatase 95 U/L (38-126); Aspartate Aminotransferase 32 IU/L (17-59); BUN Creatinine Ratio 31.2 (6-22); Bilirubin Total 0.9 mg/dL (0.2-1.3); Blood Urea Nitrogen 24 mg/dL (9-20); Calcium 8.8 mg/dL (8.4-10.2); Carbon Dioxide 28 mmol/L (22-32); Chloride 104 mmol/L (98-107); Estimated Glomerular Filt Rate > 60 mL/min (>60); Globulin 2.5 g/dL (1.7-4.1); Glucose 92 mg/dL (80-110); HEMOLYSIS < 15 (0-50); Potassium 4.4 mmol/L (3.4-5.1); Sodium 136 mmol/L (137-145); Total Protein 6.5 g/dL (6.3-8.2)
[2024-03-20 08:37] LABS: Cholesterol, Total 147 mg/dL (100-199); HDL-Cholesterol 78 mg/dL (>39); HDL-Particle (Total) 45.6 umol/L (>=30.5); Historical Reading Comment: (.); LDL Particle 922 nmol/L (<1000); LDL Size 20.3 nm (>20.5); LDL-Cholsterol 55 mg/dL (0-99); LP-IR Score 33 (<=45); Small LDL- Particle 529 nmol/L (<=527); Triglycerides 73 mg/dL (0-149)
== END ==
PROVIDERS: PCP Internal Medicine; Referring Provider Internal Medicine Cardiovascular Disease; Visit Provider Internal Medicine Cardiovascular Disease
DX: E78.00 Pure hypercholesterolemia, unspecified (principal)
CPT/HCPCS: 36415; 80053; 80061; 83704

== ENCOUNTER 2024-07-26 10:28 | Observation (INO) | payer MEDICARE, OTHER, SELFPAY ==
[2024-07-26] VITALS (19 sets, daily range): BP systolic 117–162; BP diastolic 43–114; PULSE 45–54; RESP 13–22; TEMP 36.3–36.6; O2SAT 96–100; BMI 25.1
--- NOTE | 2024-07-26 09:42 | DI.MRI.S_ITS ---
PROCEDURE: MR HEAD/BRAIN WO CON INDICATIONS: Right face, arm and leg numbness TECHNIQUE: Non-contrast axial T1 spin echo, axial T2 fast spin echo, sagittal and axial FLAIR, coronal T2 fast spin echo, axial gradient echo, axial diffusion and ADC through the brain. COMPARISON: [facility], CT, CT STROKE, 07/26/2024, 10:44. FINDINGS: Image quality: Excellent. CSF spaces: Ventricles appear symmetric in size and shape. Basal cisterns are patent. No extra-axial fluid collections. Brain: No intracranial bleeds or mass effects. 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 There is cerebral volume loss for age. There are periventricular and deep white matter chronic small vessel ischemic changes. Brainstem appears normal. Diffusion-weighted images show no acute infarct. No chronic ischemic insults. Normal intravascular flow voids are present. Skull and face: Calvarial bone marrow is normal in signal. Orbits are normal. Sinuses: Sinuses and mastoids are clear. IMPRESSION: 1. No acute infarction. No intracranial bleed, midline shift or mass effect. 2. Age related volume loss and moderate periventricular white matter small vessel chronic ischemic changes. 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 Dictated by: Logan Figueroa M.D. on 07/27/2024 at 10:10 Approved by: Logan Figueroa M.D. on 07/27/2024 at 10:11
--- NOTE | 2024-07-26 10:35 | EKG_ITS ---
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
--- NOTE | 2024-07-26 10:35 | ED_ITS ---
HPI - General Adult General Chief complaint: Neuro Symptoms/Deficit Stated complaint: stroke symptoms Time Seen by Provider: 07/26/24 10:35 History of Present Illness HPI narrative: 79-year-old gentleman post CABG, NSTEMI, hyperlipidemia, BPH, insomnia, arthritis pain, notes from February of 2024 indicate that he had been having some right leg muscle weakness and atrophy. Patient notes that he is quite active exercising regularly. Exercise this morning finished at 9:00 a.m. was feeling normal shortly thereafter he noticed some numbness on the right side of his face and increasing right-sided weakness Related Data Home Medications Medication Instructions Recorded Confirmed aspirin 81 mg chewable tablet (St 81 mg PO DAILY 02/26/22 07/26/24 Clint Aspirin) multivitamin (Daily Multi-Vitamin 1 tab PO DAILY 02/26/22 07/26/24 tablet) rosuvastatin 40 mg tablet 40 mg PO DAILY 02/26/22 07/26/24 cholecalciferol (vitamin D3) 25 2,000 unit PO DAILY 11/09/22 07/26/24 mcg (1,000 unit) capsule coenzyme Q10 300 mg capsule (Co 300 mg PO BID 11/09/22 07/26/24 Q-10) nitroglycerin 0.4 mg sublingual 0.4 mg sublingual Q5-15M PRN chest 11/09/22 07/26/24 tablet pain mirabegron 25 mg tablet,extended 25 mg PO DAILY 02/06/24 07/26/24 release 24 hr (Myrbetriq) Previous Rx's Medication Instructions Recorded tizanidine 2 mg tablet 2 mg PO TID PRN muscle spasticity 07/02/24 #60 tabs Allergies Allergy/AdvReac Type Severity Reaction Status Date / Time No Known Drug Allergies Allergy Verified 02/06/24 08:48 Review of Systems Review of Systems Narrative: Pertinent positive and negative findings as per HPI Patient History Medical History (Updated 07/26/24 @ 11:58 by Mely Powers MD) Decreased hearing Shoulder pain (~2003) Foot pain (~1999) Measles (~1953) Chicken pox (~1954) Frequent urination (~2020) Aortic stenosis (~1998) BPH w urinary obs/LUTS Chronic insomnia Primary osteoarthritis involving multiple joints (~2016) Mixed hyperlipidemia Overactive bladder History of tobacco use Urge incontinence Hx of osteoporosis Hx of coronary artery disease Coronary artery disease (~1998) Hyperlipidemia Surgical History (Updated 07/26/24 @ 12:09 by Ynes Aranda RN) Anesthesia History of hernia repair (~01/1970) History of cataract removal with insertion of prosthetic lens (~2020) Hx of vasectomy History of bladder surgery Hx of CABG (~2014) Family History Father Hyperlipidemia Congestive heart failure Sister Cerebral palsy Seizure Grandfather Asthma Social History marital status: details: (Sandrine), no children, 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 number of children: 0 household members: spouse leisure activities: exercise Smoking Status: Former smoker alcohol intake: current caffeine: No Type(s) of exercise: walking, aerobic and bicycling frequency: 3-4 times per week duration: > 90 minutes/day Smoking Status: Former smoker alcohol intake frequency: a few times a month Substance Use Type: does not use Exam Initial Vital Signs Initial Vital Signs: Vital Signs Temperature 97.3 F L 07/26/24 10:30 Pulse Rate 52 L 07/26/24 10:30 Respiratory Rate 18 07/26/24 10:30 Blood Pressure 159/114 H 07/26/24 10:30 Pulse Oximetry 99 07/26/24 10:30 Oxygen Delivery Method Room Air 07/26/24 10:30 General: Healthy appearing, in no acute distress. Able to give a complete and coherent history. Well-nourished well-developed HEENT: Moist mucous membranes, normal sclera with reactive pupils, Neck: No JVD, supple Respiratory: Lungs are clear to auscultation, no wheezing no rales no rhonchi. Full and symmetrical air movement Cardiac: Regular rate and rhythm no murmurs no bruits Abdomen: Soft, nontender, good bowel tones, no flank pain Skin: Warm and dry, no rashes Neurologic: Grossly neurologically intact with no obvious asymmetries or abnormalities Extremities: No trauma, well perfused Psych: Cooperative, appropriate insight and affect Course Orders Ordered: ED Orders 07/26/24 10:35 Complete Blood Count AUTO DIFF Stat Comprehensive Metabolic Panel Stat Ethanol (ETOH) Stat PTT Partial Thromboplastin Mahad Stat Prothrombin Time INR Stat Troponin & CK Cardiac Panel Stat 07/26/24 10:[address] angio head and neck Stat EKG-12 Lead Stat 07/26/24 11:00 Urinalysis and Microscopic Stat Urine Drug Screen, Rapid Stat 07/26/24 11:22 COVID19 -Nasal RAPID Stat Acetaminophen (Acetaminophen 325 Mg Tablet) 650 mg PO Q6H PRN PRN Reason: Fever/Mild Pain (1-3) Aspirin (Aspirin Ec 81 Mg Tablet) 81 mg PO DAILY [facility] Atorvastatin Calcium (Atorvastatin 20 Mg Tablet) 80 mg PO DAILY [facility] Multivitamins (Multivitamin 1 Tablet) 1 tab PO DAILY [facility] Naloxone HCl (Naloxone 0.4 Mg/Ml Vial) 0.2 mg IV Q2MIN PRN PRN Reason: Opiate Reversal Nitroglycerin (Nitroglycerin 0.4 Mg Sl Tab) 0.4 mg SL Q5M PRN PRN Reason: chest pain Mirabegron [ Myrbetriq] 25 Mg Tab Er 24 Hr 25 mg PO DAILY [facility] Ondansetron HCl (Ondansetron 4 Mg Odt) 4 mg PO Q8HR PRN PRN Reason: Nausea And Vomiting Tizanidine HCl (Tizanidine 4 Mg Tablet) 2 mg PO TID PRN PRN Reason: muscle spasticity Vital Signs Vital signs: Vital Signs - 8 hr 07/26/24 11:00 07/26/24 11:02 07/26/24 11:02 Pulse Rate 51 L 50 L Respiratory Rate 17 17 Blood Pressure 138/64 Pulse Oximetry 100 99 Oxygen Delivery Method Room Air 07/26/24 11:30 07/26/24 11:30 07/26/24 12:00 Pulse Rate 47 L 48 L Respiratory Rate 14 18 Blood Pressure 136/63 Pulse Oximetry 99 100 Oxygen Delivery Method Room Air 07/26/24 12:00 07/26/24 12:30 07/26/24 12:31 Pulse Rate 48 L Respiratory Rate 17 Blood Pressure 151/70 H 135/63 Pulse Oximetry 97 Oxygen Delivery Method Room Air 07/26/24 12:31 07/26/24 13:00 07/26/24 13:01 Pulse Rate 48 L 49 L 47 L Respiratory Rate 13 18 16 Blood Pressure Pulse Oximetry 100 98 100 Oxygen Delivery Method Room Air 07/26/24 13:01 07/26/24 13:30 07/26/24 13:31 Pulse Rate 54 L 53 L Respiratory Rate 19 22 Blood Pressure 159/70 H 137/64 Pulse Oximetry 98 99 Oxygen Delivery Method 07/26/24 13:31 07/26/24 14:00 07/26/24 14:00 Pulse Rate 51 L Respiratory Rate 16 Blood Pressure 137/64 122/61 Pulse Oximetry 97 Oxygen Delivery Method Medical Decision Making Medical Records Medical records narrative: Lab Test results independently reviewed as above. Pertinent findings: CBC is unremarkable Chemistries are reassuring Troponin is undetectable Independently reviewed EKG: Sinus bradycardia at a rate of 51 with no ischemic changes Imaging studies independently reviewed: Consultations: Treatments: Patient passed his swallow evaluation in the emergency department Re-evaluations: Seen on arrival, EKG, line, labs [address] Forde, no acute bleed or LVO 1057 Patient is re-evaluated with symptoms significantly improving. Because stroke symptoms are rapidly improving, he is not a tPA candidate. This was discussed with the patient and his Discussion: Lab Data 07/26/24 10:35 07/26/24 10:35 Labs: Lab Results 07/26/24 07/26/24 07/26/24 Range/Units 10:35 11:00 11:00 WBC 7.1 (4.5-11.0) X10^3/uL RBC 4.63 (4.5-5.9) X10^6/uL Hgb 15.2 (13.5-17.5) g/dL Hct 44.9 (41-53) % MCV 96.9 (80-100) fL MCH 32.9 (26-34) PG MCHC 33.9 (30-36) % RDW 13.2 (11.6-14.8) % Plt Count 203 (150-400) X10^3/uL Neut % (Auto) 63.3 (50-75) % Lymph % (Auto) 23.0 L (25-40) % [place] % (Auto) 11.9 (3-14) % Eos % (Auto) 1.4 L (2-4) % Baso % (Auto) 0.4 (0-2) % Neut # (Auto) 4500 (6772-8140) /uL Lymph # (Auto) 1600 (3788-1517) /uL [place] # (Auto) 800 (0-900) /uL Eos # (Auto) 100 (0-450) /uL Baso # (Auto) 0 (0-100) /uL PT 10.8 (9.4-12.5) SECONDS INR 1.0 (0.9-1.3) APTT 37 H (25.1-36.5) SECONDS Sodium 138 (137-145) mmol/L Potassium 4.0 (3.4-5.1) mmol/L Chloride 103 (98-107) mmol/L Carbon Dioxide 30 (22-32) mmol/L BUN 18 (9-20) mg/dL Creatinine 0.83 (0.66-1.25) mg/dL Estimated GFR > 60 (>60) mL/min BUN/Creatinine Ratio 21.7 (6-22) Glucose 93 (80-110) mg/dL Calcium 9.7 (8.4-10.2) mg/dL Total Bilirubin 1.2 (0.2-1.3) mg/dL AST 41 (17-59) IU/L ALT 28 (<50) IU/L Alkaline Phosphatase 87 (38-126) U/L Total Creatine Kinase 103 (55-170) U/L Troponin I < 0.012 (0.01-0.034) ng/mL Total Protein 7.4 (6.3-8.2) g/dL Albumin 4.7 (3.5-5.0) g/dL Globulin 2.7 (1.7-4.1) g/dL Albumin/Globulin Ratio 1.7 (1.0-2.8) Triglycerides 90 (35-150) mg/dL Cholesterol 143 (140-199) mg/dL LDL Cholesterol, Calc 48 (<100) mg/dL HDL Cholesterol 77 H (40-60) mg/dL Urine Color Yellow Urine Appearance Clear Urine pH 8.0 Normal (4.5-8.0) Ur Specific [place] 1.010 (1.000-1.035) Urine Protein Negative (Negative) Urine Glucose (UA) Negative (Negative) g/dL Urine Ketones Negative (NEGATIVE) Urine Occult Blood Negative (Negative) Urine Nitrate Negative (Negative) Urine Bilirubin Negative (NEGATIVE) Urine Urobilinogen 0.2 (0.2) E.U./dL Ur Leukocyte Esterase Negative (NEGATIVE) Urine RBC None seen (0-5/HPF) Urine WBC None seen (0-5/HPF) Ur Squamous Epith Cells None seen (0-5/HPF) Urine Bacteria None seen (None) Ur Culture Indicated? Cult not indicated Vol Urine Centrifuged 10ml (spun) U Opiates 300ng/mL cut Negative (Negative) Ur Oxycodone Screen Negative (Negative) Urine Methadone Screen Negative (Negative) Ur Barbiturates Screen Negative (Negative) U Tricyclic Antidepress Negative (Negative) Ur Phencyclidine Scrn Negative (Negative) Ur Amphetamines Screen Negative (Negative) U Methamphetamines Scrn Negative (Negative) Ur MDMA Scrn (Ecstasy) Negative (Negative) U Benzodiazepines Scrn Negative (Negative) Urine Cocaine Screen Negative (Negative) U Marijuana (THC) Screen Negative (Negative) Urine Specific [place] Normal (Normal) Ethyl Alcohol < 10 ( - 10) mg/dL Ur Creatinine Normal (Normal) SARS-CoV-2 (PCR) (Negative) 07/26/24 Range/Units 11:22 WBC (4.5-11.0) X10^3/uL RBC (4.5-5.9) X10^6/uL Hgb (13.5-17.5) g/dL Hct (41-53) % MCV (80-100) fL MCH (26-34) PG MCHC (30-36) % RDW (11.6-14.8) % Plt Count (150-400) X10^3/uL Neut % (Auto) (50-75) % Lymph % (Auto) (25-40) % [place] % (Auto) (3-14) % Eos % (Auto) (2-4) % Baso % (Auto) (0-2) % Neut # (Auto) (6139-6724) /uL Lymph # (Auto) (1084-5745) /uL [place] # (Auto) (0-900) /uL Eos # (Auto) (0-450) /uL Baso # (Auto) (0-100) /uL PT (9.4-12.5) SECONDS INR (0.9-1.3) APTT (25.1-36.5) SECONDS Sodium (137-145) mmol/L Potassium (3.4-5.1) mmol/L Chloride (98-107) mmol/L Carbon Dioxide (22-32) mmol/L BUN (9-20) mg/dL Creatinine (0.66-1.25) mg/dL Estimated GFR (>60) mL/min BUN/Creatinine Ratio (6-22) Glucose (80-110) mg/dL Calcium (8.4-10.2) mg/dL Total Bilirubin (0.2-1.3) mg/dL AST (17-59) IU/L ALT (<50) IU/L Alkaline Phosphatase (38-126) U/L Total Creatine Kinase (55-170) U/L Troponin I (0.01-0.034) ng/mL Total Protein (6.3-8.2) g/dL Albumin (3.5-5.0) g/dL Globulin (1.7-4.1) g/dL Albumin/Globulin Ratio (1.0-2.8) Triglycerides (35-150) mg/dL Cholesterol (140-199) mg/dL LDL Cholesterol, Calc (<100) mg/dL HDL Cholesterol (40-60) mg/dL Urine Color Urine Appearance Urine pH (4.5-8.0) Ur Specific [place] (1.000-1.035) Urine Protein (Negative) Urine Glucose (UA) (Negative) g/dL Urine Ketones (NEGATIVE) Urine Occult Blood (Negative) Urine Nitrate (Negative) Urine Bilirubin (NEGATIVE) Urine Urobilinogen (0.2) E.U./dL Ur Leukocyte Esterase (NEGATIVE) Urine RBC (0-5/HPF) Urine WBC (0-5/HPF) Ur Squamous Epith Cells (0-5/HPF) Urine Bacteria (None) Ur Culture Indicated? Vol Urine Centrifuged U Opiates 300ng/mL cut (Negative) Ur Oxycodone Screen (Negative) Urine Methadone Screen (Negative) Ur Barbiturates Screen (Negative) U Tricyclic Antidepress (Negative) Ur Phencyclidine Scrn (Negative) Ur Amphetamines Screen (Negative) U Methamphetamines Scrn (Negative) Ur MDMA Scrn (Ecstasy) (Negative) U Benzodiazepines Scrn (Negative) Urine Cocaine Screen (Negative) U Marijuana (THC) Screen (Negative) Urine Specific [place] (Normal) Ethyl Alcohol ( - 10) mg/dL Ur Creatinine (Normal) SARS-CoV-2 (PCR) Negative (Negative) Point of Care Testing Glucose POC 84 Point of care testing: Point of Care Testing Glucose POC [address] scan - head: Radiologist's Impression: PROCEDURE: CT STROKE INDICATIONS: stroke TECHNIQUE: Noncontrast 4.5 mm thick angled axial sections acquired from the foramen magnum to the vertex, with coronal reformats. For radiation dose reduction, the following was used: automated exposure control, adjustment of mA and/or kV according to patient size. COMPARISON: [facility], MR, MR STROKE, 01/23/2022, 16:24. [facility], CT, CT ANGIO HEAD AND NECK, 07/26/2024, 10:44. FINDINGS: Image quality: Diagnostic. CSF spaces: Basal cisterns are patent. No extra-axial fluid collections. The ventricles are symmetric in size and shape. Brain: No intracranial bleeds or masses. There is cerebral volume loss for age, with resultant ventricular and sulcal prominence. There are periventricular and deep white matter chronic small vessel ischemic changes. There is a prominent sulcus seen involving the right occipital lobe, which is stable over time. There is intracranial internal carotid artery atherosclerosis. Skull and face: Calvarium and visualized facial bones appear intact, without suspicious lesions. Sinuses: Visualized sinuses and mastoids are clear. IMPRESSION: No acute intracranial hemorrhage is seen. No acute intracranial pathology. Note: Case discussed by telephone with Dr. Mely Powers at 10:55 a.m. [facility] time on July 26, 2024. This study fulfills neurological imaging criteria for inclusion or exclusion of acute stroke therapies based on available published neurological guidelines. Dictated by: Bandar Forde M.D. on 07/26/2024 at 9:53 CT angio Head and neck: Radiologist's Impression: PROCEDURE: CT ANGIO HEAD AND NECK INDICATIONS: stroke TECHNIQUE: After the administration of intravenous contrast, 1 mm thick sections acquired from the aortic arch through the [place] of [place]. 3-dimensional xtvizwh-lbtwkwaug-ciqgzfvqqk (MIP) and/or volume rendering reformats were acquired of the central intracranial vasculature and neck separately. For radiation dose reduction, the following was used: automated exposure control, adjustment of mA and/or kV according to patient size. COMPARISON: [facility], CT, CT STROKE, 07/26/2024, 10:44. [facility], MR, MR STROKE, 01/23/2022, 16:24. FINDINGS: Image quality: Diagnostic. BRAIN: CSF spaces: Ventricles are normal in size and shape. Basal cisterns are patent. No extra-axial fluid collections. Brain: No acute abnormality of the brain can be seen. Skull and face: Calvarium and facial bones appear intact, without suspicious lesions. Orbits appear normal. Sinuses: Sinuses and mastoids are clear. HEAD CT ANGIOGRAPHY: Anterior circulation: Intracranial internal carotid arteries are normal in size and flow. The flow within the paired anterior cerebral arteries is normal and symmetric. The flow within the middle cerebral arteries is normal and symmetric. The anterior communicating artery is seen. No aneurysms are seen. Posterior circulation: Visualized portions of the vertebral arteries demonstrate normal caliber, and join to form a normal appearing basilar artery. There is a prominent right posterior communicating artery seen, with an accompanying diminutive right P1 segment. This is attributed to a type origin of the right posterior cerebral artery, which is considered to be a normal developmental variant of typically no clinical consequence. The flow within the posterior cerebral arteries is normal and symmetric. No aneurysms are seen. NECK CT ANGIOGRAPHY: Carotid system: The great vessels demonstrate a conventional anatomy as they arise from the aortic arch. The origins of the common carotid arteries appear patent. The common carotid arteries demonstrate normal caliber and courses. The bifurcation regions demonstrate atherosclerotic irregularity and calcification. There is 50% narrowing seen involving the origin of the right internal carotid artery. On the left, there is 30-40% narrowing seen involving the left proximal internal carotid artery. The more distal internal carotid arteries demonstrate normal course and caliber. Posterior circulation: The origins of the vertebral arteries both appear widely patent. The more superior extracranial portions of both vertebral arteries also demonstrate normal courses and calibers. They join to form a normal appearing basilar artery. Soft tissues: Visualized neck soft tissues demonstrate no suspicious abnormalities. Bones: No suspicious bony lesions. Visualized cervical spine appears normally aligned. Sternotomy wires are seen. IMPRESSION: No significant intracranial arterial abnormality is seen. Kfzv-vd-xnvlmjgd narrowing can be seen involving the proximal internal carotid arteries. No significant vertebral artery abnormality is seen. Additional findings: Odeg-du-mycenysc cervical spine degenerative change Sternotomy wires Note: Case discussed by telephone with Dr. Mely Powers at 10:55 a.m. [facility] time on July 26, 2024. Any quantitative measurements of stenosis were performed using NASCET criteria. Dictated by: Bandar Forde M.D. on 07/26/2024 at 10:[address] [facility] Narrative Medical decision making narrative: CC: Acute right-sided weakness, last known well 9:00 a.m. Complicating co-morbidities: Coronary artery disease, hypertension, hyperlipidemia Data collected from: patient, Medical records reviewed: Primary care notes from February of 2024 are reviewed Differential considered: Stroke, infection, doubt Schneider's palsy given the extremity symptoms Exam is remarkable for paresthesia right side of face arm leg. Some difficulty with gait due to right-sided weakness Lab Test results independently reviewed as above. Pertinent findings: CBC is unremarkable Chemistries are reassuring Troponin is undetectable Independently reviewed EKG: Sinus bradycardia at a rate of 51 with no ischemic changes Imaging studies independently reviewed: CT of the head is unremarkable CT angiogram does not show large vessel occlusion Consultations: Treatments: Patient passed his swallow evaluation in the emergency department Re-evaluations: Seen on arrival, EKG, line, labs [address] Forde, no acute bleed or LVO 1057 Patient is re-evaluated with symptoms significantly improving. Because stroke symptoms are rapidly improving, he is not a tPA candidate. This was discussed with the patient and his Discussed with pharmacy Discussion: 79-year-old gentleman with a history coronary artery disease currently on an aspirin, hypertension hyperlipidemia who presents with acute right-sided paresthesia that resolves with in approximately 90 minutes of presentation. Initially had had some right arm and leg weakness. This too has resolved. Head CT and CTA are unremarkable. At this point we will recommend admission for remainder of his stroke workup including echocardiogram, MRI and maximizing medical management for stroke prevention Discharge Plan Departure Patient Disposition: Admitted as Observation Clinical Impression: Stroke Qualifiers: CVA mechanism: unspecified Qualified Code(s): I63.9 - Cerebral infarction, unspecified Admit Date/Time: 07/26/24 14:03 Admit Provider: Leatha Mora
[2024-07-26 10:50] LABS: Add Manual Diff / Slide Review NO; Basophils Absolute Auto 0 /uL (0-100); Basophils Percent Auto 0.4 % (0-2); Eosinophils Absolute Auto 100 /uL (0-450); Eosinophils Percent Auto 1.4 % (2-4); Hematocrit 44.9 % (41-53); Hemoglobin 15.2 g/dL (13.5-17.5); Lymphocytes Absolute Auto 1600 /uL (1100-4500); Mean Corpuscular HGB Conc 33.9 % (30-36); Mean Corpuscular Hemoglobin 32.9 PG (26-34); Mean Corpuscular Volume 96.9 fL (80-100); Monocytes Absolute Auto 800 /uL (0-900); Monocytes Percent Auto 11.9 % (3-14); Neutrophils Absolute Auto 4500 /uL (1500-7000); Neutrophils Percent Auto 63.3 % (50-75); Platelet Count 203 X10^3/uL (150-400); Red Blood Cell Count 4.63 X10^6/uL (4.5-5.9); Red Cell Distribution Width 13.2 % (11.6-14.8); White Blood Cell Count 7.1 X10^3/uL (4.5-11.0)
[2024-07-26 10:54] LABS: Prothrombin Time 10.8 SECONDS (9.4-12.5)
[2024-07-26 10:56] LABS: PTT Partial Thromboplastin Tim 37 SECONDS (25.1-36.5)
[2024-07-26 10:58] LABS: Alanine Aminotransferase 28 IU/L (<50); Albumin 4.7 g/dL (3.5-5.0); Albumin Globulin Ratio 1.7 (1.0-2.8); Alkaline Phosphatase 87 U/L (38-126); Aspartate Aminotransferase 41 IU/L (17-59); BUN Creatinine Ratio 21.7 (6-22); Bilirubin Total 1.2 mg/dL (0.2-1.3); Blood Urea Nitrogen 18 mg/dL (9-20); Calcium 9.7 mg/dL (8.4-10.2); Carbon Dioxide 30 mmol/L (22-32); Chloride 103 mmol/L (98-107); Creatine Kinase 103 U/L (55-170); Estimated Glomerular Filt Rate > 60 mL/min (>60); Ethanol (ETOH) < 10 mg/dL; Globulin 2.7 g/dL (1.7-4.1); Glucose 93 mg/dL (80-110); HEMOLYSIS < 15 (0-50); Sodium 138 mmol/L (137-145); Total Protein 7.4 g/dL (6.3-8.2)
[2024-07-26 11:09] LABS: Troponin I < 0.012 ng/mL (0.01-0.034)
[2024-07-26 11:20] LABS: Appearance Urine UA CLEAR; Bilirubin Urine UA NEGATIVE (NEGATIVE); Color Urine UA YELLOW; Glucose Urine UA NEGATIVE (Negative); Ketones Urine UA NEGATIVE (NEGATIVE); Leukocyte Esterase Urine UA NEGATIVE (NEGATIVE); Nitrite Urine UA NEGATIVE (Negative); Occult Blood Urine UA NEGATIVE (Negative); Protein Urine UA NEGATIVE (Negative); Urobilinogen Urine UA 0.2 E.U./dL (0.2)
[2024-07-26 11:26] LABS: Ur Creatinine Normal (Normal); Ur Specific Gravity Normal (Normal); Urine Cocaine Negative (Negative); Urine Tetrahydrocannabinol Negative (Negative); Urine pH Normal (Normal)
[2024-07-26 11:27] LABS: UR Morphine/Opiate cutoff 300 Negative (Negative); Urine Amphetamines Negative (Negative); Urine Barbiturates Negative (Negative); Urine Benzodiazepines Negative (Negative); Urine MDMA Negative (Negative); Urine Methadone Negative (Negative); Urine Methamphetamines Negative (Negative); Urine Oxycodone Negative (Negative); Urine Phencyclidine Negative (Negative); Urine Tricyclic Antidepressant Negative (Negative)
[2024-07-26 11:36] LABS: Bacteria Urine None Seen; Culture Indicated Urine Cult Not Indicated; RBC Urine None Seen (0-5/HPF); Squamous Epithelial Cell Urine None Seen (0-5/HPF); Urine Volume 10mL (spun); WBC Urine None Seen (0-5/HPF)
[2024-07-26 11:49] LABS: COVID19 -Nasal RAPID Negative (Negative)
--- NOTE | 2024-07-26 13:15 | PC.NURSE ---
intermittant right face @ cheek with slight numbness but no change of sensation from left side of face that comes and goes for a few minutes and no precipitating factors.
--- NOTE | 2024-07-26 15:41 | DI.ECHO.S_ITS ---
[place] +---------+ Hospital : : [address] : : [place] : : [id number] : : Phone: [phone] Echocardiogram Report + + :Name: JANE MINER Study Date: 07/27/2024 Height: 70 in : :Hospital ReadingLocation: Weight: 175 lb : : Gender: Male BSA: 2.0 m2 : :: 1945 Age: 79 yrs BP: 146/57 mmHg: :Reason For Study: CVA SXS : :Ordering Physician: FLORES, : :FRANCISCO J Performed By: Geovanna Delgadillo : :Referring: FRANCISCO J TANNER : + + Interpretation Summary The left ventricle is normal in size and wall thickness. Left ventricular systolic function is normal. The ejection fraction is estimated to be 50-55%. There is mid inferior wall hypokinesis. Compared to the prior exam, the left ventricular wall motion has not changed. Diastolic parameters suggest probable normal left ventricular diastolic function and normal filling pressures. The right ventricle is not well visualized. The right ventricular systolic function is normal. The right ventricular systolic pressure is estimated to be at least 26 mmHg based on an estimated right atrial pressure of 3 mm Hg. The left atrium is mildly dilated. There is mild mitral regurgitation. There is mild to moderate aortic regurgitation. The aortic root is normal size. Procedure: A two-dimensional transthoracic echocardiogram with color flow and Doppler was performed. The study quality was technically adequate. Comparison is made with the echocardiogram of 01/02/2024. The patient was in sinus bradycardia with heart rates between 44-47 bpm during the exam. Left Ventricle: The left ventricle is normal in size and wall thickness. Left ventricular systolic function is normal. The ejection fraction is estimated to be 50-55%. There is mid inferior wall hypokinesis. Compared to the prior exam, the left ventricular wall motion has not changed. Diastolic parameters suggest probable normal left ventricular diastolic function and normal filling pressures. Right Ventricle: The right ventricle is not well visualized. The right ventricle is grossly normal size. The right ventricular systolic function is normal. Atria: The left atrium is mildly dilated. Right atrial size is normal. There is no Doppler evidence for an interatrial shunt. Mitral Valve: The mitral valve is normal in structure and function. There is mild mitral regurgitation. There are multiple regurgitant jets present. Aortic Valve: The aortic valve is mildly calcified. There is mild aortic valve sclerosis. There is mildly reduced leaflet mobility. The peak aortic velocity is 2.2 m/sec. The aortic valve mean gradient is 11 mmHg. The calculated aortic valve area is 2.6 cm2. There is mild to moderate aortic regurgitation. Tricuspid Valve: The tricuspid valve is normal in structure and function. There is trace tricuspid regurgitation. The right ventricular systolic pressure is estimated to be at least 26 mmHg based on an estimated right atrial pressure of 3 mm Hg. Pulmonic Valve: The pulmonic valve leaflets are thin and pliable; valve motion is normal. There is no pulmonic valvular regurgitation. Great Vessels: The aortic root is normal size. The dimensions of the ascending aorta are normal. The IVC is of normal diameter and collapses greater than 50% with a sniff. This suggests a low right atrial pressure of 3 mm Hg. Pericardium/ Pleura There is no pericardial effusion. There is no pleural effusion. MMode/2D Measurements & Calculations LVIDd: 5.5 cm LVOT diam: 2.3 cm LVIDs: 3.6 cm Ao root diam: 3.2 cm FS: 34.8 % asc Aorta Diam: 3.1 cm IVSd: 0.66 cm Ao Arch Diam (Prox Trans): 2.8 cm LVPWd: 0.93 cm LV solis. diameter/BSA (cm/m^2): 2.8 LV sys. diameter/BSA (cm/m^2): 1.8 LA A2 area: 23.4 cm2 RA long axis: 5.2 cm LA A4 area: 18.4 cm2 RA area: 18.4 cm2 LA length (vol): 5.0 cm RA vol: 55.5 ml LA vol: 73.8 ml RA : 28.2 ml/m2 LA vol index: 37.4 ml/m2 IVC diam: 1.8 cm TAPSE: 1.8 cm Doppler Measurements & Calculations Ao V2 max: 220.4 cm/sec LVOT Max Pal: 131.2 cm/sec Ao V2 mean: 153.8 cm/sec LV V1 max P.9 mmHg Ao max P.1 mmHg LV V1 VTI: 29.6 cm Ao mean P.3 mmHg FABRIZIO(I,D): 2.5 cm2 Ao V2 VTI: 51.4 cm FABRIZIO(V,D): 2.6 cm2 sev ratio: 0.58 FABRIZIO indexed to BSA (cm^2/m^2): 1.3 MV E max pal: 65.0 cm/sec TR max pal: 239.0 cm/sec MV A max pal: 66.6 cm/sec TR max P.9 mmHg MV E/A: 0.98 PA V2 max: 125.4 cm/sec Med Peak E' Pal: 8.4 cm/sec PA V2 mean: 84.0 cm/sec E/E' med: 7.7 PA mean P.2 mmHg Lat Peak E' Pal: 6.5 cm/sec PA pr(Accel): 0.22 mmHg E/E' lat: 10.0 E/e' average: 8.9 MV dec time: 0.24 sec SV(LVOT): 127.4 ml Reading Physician:03:17 PM
[2024-07-26 16:01] LABS: Cholesterol 143 mg/dL (140-199); HDL Cholesterol 77 mg/dL (40-60); LDL Cholesterol Calculated 48 mg/dL (<100); Triglycerides 90 mg/dL (35-150)
--- NOTE | 2024-07-26 16:28 | P.HP_ITS ---
History of Present Illness History of Present Illness Chief complaint: stroke symptoms Narrative: 71-year-old male with hypertension, hyperlipidemia, coronary artery disease status post CABGx 5 vessels in 2015, osteoporosis, urge incontinence, BPH, history of tobacco dependence (quit in 1989) who presented to the emergency department today complaining of right face, arm and leg numbness. Patient reports he was exercising today per his usual routine. Was walking on an incline on his treadmill at a somewhat vigorous pace. He followed that with lifting weights. Approximately 30 minutes later, he felt the right side of his face become warm, followed by his right arm and leg. He developed some numbness in his hand. He also complained to his of feeling a bit dizzy. He notes no previous history of these symptoms. His recently completed her BLS class and had teaching about stroke symptoms. She was not certain about the numbness but was able to look it up and found that this could be a stroke and subsequently had him sent to the emergency department. By the time he arrived in the emergency department, his NIH score was 1. Dr. Grant reported his findings were very minimal. He did have a slightly ataxic gait. On arrival temp was 97.3?, heart rate 52, BP 159/114, O2 sats 99% in room air. Over the course of his time in the emergency department, his heart rate 47-52. He reported baseline resting heart rate around 50 to 55. Over the course of the time in the emergency department, his symptoms completely resolved. Laboratories revealed a essentially normal CBC with exception of a slightly low lymphocyte count at 23% and slightly low eosinophil count at 1.4%. PT and INR were within normal limits. Chemistry panel within normal limits. Troponin I less than 0.012. UA was within normal limits. Urine toxicology screen was negative, alcohol level negative, COVID screen negative. Head CT revealed no acute intracranial hemorrhage. No acute intracranial pathology. CTA revealed 50% narrowing of the right internal carotid artery and 30-40% narrowing of the left proximal internal carotid artery. No significant intracranial arterial abnormality. No significant vertebral arterial abnormality noted. Echocardiogram from December of this year revealed an EF of 50- 55%, mid inferior hypokinesis, moderately dilated right ventricle, elevated right atrial pressure, mild tricuspid regurgitation, [id number] aortic regurgitation. EKG revealed a sinus bradycardia with a rate of 51, first-degree AV block with PACs. Currently, patient reports his symptoms have fully resolved. He does complain of intermittent leg cramps at night. He does take tizanidine for those when they happen. He has not taken any tizanidine for the last week and a half or 2. He does not take any rate-controlling medications. He states he did undergo a stress echo which he reports was within normal limits in March of this year. He also had a ZIO patch during which he did have symptoms but no events at the time he recorded symptoms. He was advised there were no other abnormalities or arrhythmias identified. He denies any lightheadedness since coming up to the floor. He has had heart rates in the 44-47 range with normal blood pressures documented. No chest pain, tightness or pressure. No shortness of breath. No nausea. No further neurologic symptoms. He did have multiple questions with regard to code status/cardiopulmonary resuscitation/ with dignity laws/advanced directives. [facility] Medical History (Updated 07/26/24 @ 11:58 by Mely Powers MD) Decreased hearing Shoulder pain (~2003) Foot pain (~1999) Measles (~1953) Chicken pox (~1954) Frequent urination (~2020) Aortic stenosis (~1998) BPH w urinary obs/LUTS Chronic insomnia Primary osteoarthritis involving multiple joints (~2016) Mixed hyperlipidemia Overactive bladder History of tobacco use Urge incontinence Hx of osteoporosis Hx of coronary artery disease Coronary artery disease (~1998) Hyperlipidemia Surgical History (Updated 07/26/24 @ 12:09 by Ynes Aranda RN) Anesthesia History of hernia repair (~01/1970) History of cataract removal with insertion of prosthetic lens (~2020) Hx of vasectomy History of bladder surgery Hx of CABG (~2014) Family History Father Hyperlipidemia Congestive heart failure Sister Cerebral palsy Seizure Grandfather Asthma Social History marital status: details: (Sandrine), no children, retired [employer] number of children: 0 household members: spouse leisure activities: exercise Smoking Status: Former smoker alcohol intake: current caffeine: No Type(s) of exercise: walking, aerobic and bicycling frequency: 3-4 times per week duration: > 90 minutes/day Meds Home Medications and Allergies Home Medications Medication Instructions Recorded Confirmed Type aspirin 81 mg chewable tablet (St 81 mg PO DAILY 02/26/22 07/26/24 History Clint Aspirin) multivitamin (Daily Multi-Vitamin 1 tab PO DAILY 02/26/22 07/26/24 History tablet) rosuvastatin 40 mg tablet 40 mg PO DAILY 02/26/22 07/26/24 History cholecalciferol (vitamin D3) 25 2,000 unit PO DAILY 11/09/22 07/26/24 History mcg (1,000 unit) capsule coenzyme Q10 300 mg capsule (Co 300 mg PO BID 11/09/22 07/26/24 History Q-10) nitroglycerin 0.4 mg sublingual 0.4 mg sublingual Q5-15M PRN chest 11/09/22 07/26/24 History tablet pain mirabegron 25 mg tablet,extended 25 mg PO DAILY 02/06/24 07/26/24 History release 24 hr (Myrbetriq) tizanidine 2 mg tablet 2 mg PO TID PRN muscle spasticity 07/02/24 07/26/24 Rx #60 tabs Allergies Allergy/AdvReac Type Severity Reaction Status Date / Time No Known Drug Allergies Allergy Verified 02/06/24 08:48 Review of Systems Review of Systems Narrative: As noted above, otherwise All other systems were reviewed negative Exam Vital Signs (past 8 hours): - 07/26/24 10:30 07/26/24 10:32 07/26/24 10:33 Temperature 97.3 F L 97.3 F L Pulse Rate 52 L Respiratory Rate 18 16 Blood Pressure 159/114 H 159/114 H Pulse Oximetry 99 98 Oxygen Delivery Method Room Air Room Air 07/26/24 10:33 07/26/24 10:37 07/26/24 10:37 Temperature Pulse Rate 54 L 50 L Respiratory Rate 18 Blood Pressure 142/66 H Pulse Oximetry 98 96 Oxygen Delivery Method Room Air 07/26/24 10:55 07/26/24 10:55 07/26/24 11:00 Temperature Pulse Rate 52 L 51 L Respiratory Rate 15 17 Blood Pressure 156/69 H Pulse Oximetry 98 100 Oxygen Delivery Method 07/26/24 11:02 07/26/24 11:02 07/26/24 11:30 Temperature Pulse Rate 50 L 47 L Respiratory Rate 17 14 Blood Pressure 138/64 Pulse Oximetry 99 99 Oxygen Delivery Method Room Air 07/26/24 11:30 07/26/24 12:00 07/26/24 12:00 Temperature Pulse Rate 48 L Respiratory Rate 18 Blood Pressure 136/63 151/70 H Pulse Oximetry 100 Oxygen Delivery Method Room Air 07/26/24 12:30 07/26/24 12:31 07/26/24 12:31 Temperature Pulse Rate 48 L 48 L Respiratory Rate 17 13 Blood Pressure 135/63 Pulse Oximetry 97 100 Oxygen Delivery Method Room Air 07/26/24 13:00 07/26/24 13:01 07/26/24 13:01 Temperature Pulse Rate 49 L 47 L Respiratory Rate 18 16 Blood Pressure 159/70 H Pulse Oximetry 98 100 Oxygen Delivery Method Room Air 07/26/24 13:30 07/26/24 13:31 07/26/24 13:31 Temperature Pulse Rate 54 L 53 L Respiratory Rate 19 22 Blood Pressure 137/64 137/64 Pulse Oximetry 98 99 Oxygen Delivery Method 07/26/24 14:00 07/26/24 14:00 Temperature Pulse Rate 51 L Respiratory Rate 16 Blood Pressure 122/61 Pulse Oximetry 97 Oxygen Delivery Method Oxygen Delivery Method Room Air Narrative Exam Narrative: GEN: Elderly male, very pleasant, Alert and oriented x3, no acute distress HEENT: Normocephalic, face symmetric, pupils equal round reactive to light, extraocular movements intact, sclerae anicteric, conjunctiva clear, nares patent, oropharynx reveals an intact soft and hard palate with moist mucous membranes, dentition is fair NECK: Supple, no lymphadenopathy, thyroid without enlargement or nodularity, carotids no bruits CHEST: Respiratory excursions symmetric, clear to auscultation bilaterally CV: Bradycardic with regular rhythm, no murmurs, rubs, gallops, PMI nondisplaced ABD: Soft, nontender, nondistended, bowel sounds present in all 4 quadrants, no organomegaly or masses appreciated EXTR: Warm, well perfused, no clubbing/cyanosis/edema SKIN: Warm and dry, without rash NEURO: Alert and oriented x3, normal gait, no facial droop noted, moving about the room without any difficult, no weakness noted. PSYCH: Mood and affect is within normal limits, judgment and insight are appropriate Objective Labs 07/26/24 10:35 07/26/24 10:35 Labs: Laboratory Results - last 24 hr 07/26/24 07/26/24 07/26/24 10:35 11:00 11:00 WBC 7.1 RBC 4.63 Hgb 15.2 Hct 44.9 MCV 96.9 MCH 32.9 MCHC 33.9 RDW 13.2 Plt Count 203 Neut % (Auto) 63.3 Lymph % (Auto) 23.[address] [place] % (Auto) 11.9 Eos % (Auto) 1.4 L Baso % (Auto) 0.4 Neut # (Auto) 4500 Lymph # (Auto) 1600 [place] # (Auto) 800 Eos # (Auto) 100 Baso # (Auto) 0 PT 10.8 INR 1.0 APTT 37 H Sodium 138 Potassium 4.0 Chloride 103 Carbon Dioxide 30 BUN 18 Creatinine 0.83 Estimated GFR > 60 BUN/Creatinine Ratio 21.7 Glucose 93 Calcium 9.7 Total Bilirubin 1.2 AST 41 ALT 28 Alkaline Phosphatase 87 Total Creatine Kinase 103 Troponin I < 0.012 Total Protein 7.4 Albumin 4.7 Globulin 2.7 Albumin/Globulin Ratio 1.7 Triglycerides 90 Cholesterol 143 LDL Cholesterol, Calc 48 HDL Cholesterol 77 H Urine Color Yellow Urine Appearance Clear Urine pH 8.0 Normal Ur Specific [place] 1.010 Urine Protein Negative Urine Glucose (UA) Negative Urine Ketones Negative Urine Occult Blood Negative Urine Nitrate Negative Urine Bilirubin Negative Urine Urobilinogen 0.2 Ur Leukocyte Esterase Negative Urine RBC None seen Urine WBC None seen Ur Squamous Epith Cells None seen Urine Bacteria None seen Ur Culture Indicated? Cult not indicated Vol Urine Centrifuged 10ml (spun) U Opiates 300ng/mL cut Negative Ur Oxycodone Screen Negative Urine Methadone Screen Negative Ur Barbiturates Screen Negative U Tricyclic Antidepress Negative Ur Phencyclidine Scrn Negative Ur Amphetamines Screen Negative U Methamphetamines Scrn Negative Ur MDMA Scrn (Ecstasy) Negative U Benzodiazepines Scrn Negative Urine Cocaine Screen Negative U Marijuana (THC) Screen Negative Urine Specific [place] Normal Ethyl Alcohol < 10 Ur Creatinine Normal SARS-CoV-2 (PCR) 07/26/24 11:22 WBC RBC Hgb Hct MCV MCH MCHC RDW Plt Count Neut % (Auto) Lymph % (Auto) [place] % (Auto) Eos % (Auto) Baso % (Auto) Neut # (Auto) Lymph # (Auto) [place] # (Auto) Eos # (Auto) Baso # (Auto) PT INR APTT Sodium Potassium Chloride Carbon Dioxide BUN Creatinine Estimated GFR BUN/Creatinine Ratio Glucose Calcium Total Bilirubin AST ALT Alkaline Phosphatase Total Creatine Kinase Troponin I Total Protein Albumin Globulin Albumin/Globulin Ratio Triglycerides Cholesterol LDL Cholesterol, Calc HDL Cholesterol Urine Color Urine Appearance Urine pH Ur Specific [place] Urine Protein Urine Glucose (UA) Urine Ketones Urine Occult Blood Urine Nitrate Urine Bilirubin Urine Urobilinogen Ur Leukocyte Esterase Urine RBC Urine WBC Ur Squamous Epith Cells Urine Bacteria Ur Culture Indicated? Vol Urine Centrifuged U Opiates 300ng/mL cut Ur Oxycodone Screen Urine Methadone Screen Ur Barbiturates Screen U Tricyclic Antidepress Ur Phencyclidine Scrn Ur Amphetamines Screen U Methamphetamines Scrn Ur MDMA Scrn (Ecstasy) U Benzodiazepines Scrn Urine Cocaine Screen U Marijuana (THC) Screen Urine Specific [place] Ethyl Alcohol Ur Creatinine SARS-CoV-2 (PCR) Negative Assessment & Plan Assessment & Plan narrative: 1. TIA versus stroke Patient presented with acute onset of right facial weakness/numbness, right hand numbness/arm weakness and right leg weakness. It rapidly resolves spontaneously. CT showed no acute findings. He has some carotid stenosis bilaterally but no hemodynamically significant stenosis. Lipid panel was sent and shows good control at this time. We will admit under observation status. We will obtain an MRI of the brain and repeat an echocardiogram. Will keep on telemetry to evaluate for underlying arrhythmias. I did consider the possibility of bradycardia induced hypoperfusion during or after exercise. However, I was able to review his fit bit during the period of exercise and post exercise in question. Heart rate did reach a maximum of 130 and then gradually came back down to normal. It appears it was unlikely that he had an impaired heart rate response during exercise as the source of this. He did recently have a ZIO patch placed without any significant abnormalities identified. Will however continue telemetry. 2. Hypertension Blood pressures have been normotensive to slightly hypertensive. Does not appear to be on any antihypertensives on an outpatient basis. Will continue to monitor. 3. Coronary artery disease Well controlled. Continue aspirin, Crestor, nitroglycerin as needed. 4. Bradycardia Mild. Heart rates have ranged as low as 44. In general they have been in the 50-54 range. He has not on any rate-controlling medications. He is on tizanidine however which can cause bradycardia. I did review his fit bit and each day his heart rate ranges from as low as 44 to his high as 128. I did look back as far as mid June and this appears to be his typical trend. His heart rates here are fairly consistent with that trend. He has not symptomatic and has not been symptomatic since arrival to the floor despite documentation of heart rates in the mid to high 40s. I did discuss that he should avoid using tizanidine as it can cause bradycardia. Encouraged him to use calcium/magnesium supplementation and tonic water for his leg cramps at night instead. 5. Hyperlipidemia Total cholesterol is 143, LDL 48, HDL 77, triglycerides 90. Well controlled on Crestor. Continue usual outpatient dose. 6. Coronary artery disease with prior 5 vessel CABG Well controlled at this time. He continues on aspirin, Crestor. No cardiac symptoms. His baseline low heart rates precludes use of a beta-bear. At 1 time, he reports he was on an EMMANUEL inhibitor. He never had an OH per his report but was found related to a routine stress test. 7. Advanced care planning Long discussion with the patient and his with regard to how to complete a POLST form. We discussed in an [id number] arrest and statistics of recovery. Patient is very clear he does not wish to have resuscitation. He also requested further information about with dignity loss and how that can be used. I discussed this at great length with him. Advised that patients have to have both a terminal diagnosis and prognosis of 6 months or less. Also discussed how advanced directives and durable power of employment attorney for health care can be utilized to help plan ahead for a time when he can no longer speak for himself and share his wishes regarding his health care. Code status DNR/DNI per patient Prophylaxis [place] Disposition Suspect he will discharge home tomorrow after his MRI and echo Time-Based Coding :: [TOTAL MINUTES] spent with patient and on the chart (including review of chart, obtaining history, exam, reviewing outside data, placing orders, documenting exam and treatment plan, and counseling patient) on [DATE].
[2024-07-26 19:04] LABS: TSH w/ Reflex to FT4 1.08 uIU/mL (0.47-4.68)
--- NOTE | 2024-07-26 22:41 | PC.NURSE ---
2053: Patient reported intermittent right-sided facial & hand numbness that resolved within seconds. VS WNL (see documentation), blood glucose 98. Patient is AxOx4. [facility] currently 0. Notified MD Rain, continuing to monitor.
[2024-07-27 03:00] VITALS: BP 135/57; PULSE 40; RESP 18; TEMP 36.5; O2SAT 98
[2024-07-27 05:46] LABS: Add Manual Diff / Slide Review NO; Basophils Absolute Auto 0 /uL (0-100); Basophils Percent Auto 0.3 % (0-2); Eosinophils Absolute Auto 100 /uL (0-450); Eosinophils Percent Auto 1.9 % (2-4); Hematocrit 41.1 % (41-53); Lymphocytes Absolute Auto 1900 /uL (1100-4500); Lymphocytes Percent Auto 28.7 % (25-40); Mean Corpuscular HGB Conc 34.2 % (30-36); Mean Corpuscular Volume 96.5 fL (80-100); Monocytes Absolute Auto 800 /uL (0-900); Monocytes Percent Auto 12.1 % (3-14); Neutrophils Absolute Auto 3800 /uL (1500-7000); Platelet Count 178 X10^3/uL (150-400); Red Blood Cell Count 4.26 X10^6/uL (4.5-5.9); Red Cell Distribution Width 13.2 % (11.6-14.8); White Blood Cell Count 6.7 X10^3/uL (4.5-11.0)
[2024-07-27 05:54] LABS: BUN Creatinine Ratio 28.4 (6-22); Blood Urea Nitrogen 21 mg/dL (9-20); Calcium 9.3 mg/dL (8.4-10.2); Carbon Dioxide 26 mmol/L (22-32); Chloride 106 mmol/L (98-107); Estimated Glomerular Filt Rate > 60 mL/min (>60); Glucose 99 mg/dL (80-110); HEMOLYSIS < 15 (0-50); Sodium 137 mmol/L (137-145)
[2024-07-27 07:00] VITALS: BP 131/44; PULSE 48; RESP 15; TEMP 35.8; O2SAT 98
[2024-07-27] MEDS: ASPIRIN EC 81 MG TABLET PO (10:26)
[2024-07-27 10:30] VITALS: BP 146/57
[2024-07-27 11:09] LABS: Hemoglobin A1C% w Est Avg Glu 5.5 % (4.0-6.0)
[2024-07-27] MEDS: CLOPIDOGREL 75 MG TABLET PO (11:30)
--- NOTE | 2024-07-27 12:06 | SLP.IPNOTE ---
[employer] H[employer] RESOURCES ASSISTANT consulted with pt and RN. No c/o difficulty with swallowing, memory, cognition, speech, or language. Pt endorsed mild R sided facial numbness but denied impact on feeding/swallowing. No full evaluation warranted at this time. D/c order unless pt status changes.
--- NOTE | 2024-07-27 12:09 | CM.DANOTE ---
DCP Assessment Note Pt is a 79yo M here with stroke like symptoms. PCP Yenifer Payer Medicare and [employer] SENIOR DEVOPS ENGINEER reviewed EMR. Pt had original appt scheduled for today with Dr. Street. SENIOR DEVOPS ENGINEER messaged TCM team to update them on pt's admission. TCM team scheduled hospital f/u and rescheduled medicare wellness visit. per hospitalist in morning rounds, MRI/echo pending but anticipate dc later today. SENIOR DEVOPS ENGINEER met with pt and spouse in room. confirm indep with spouse in [place], no DME. 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 appreciated updates on f/u appts. Deny any DCP/CM needs at this time. P: anticipate dc later today with spouse support pending MRI/echo results. no CM needs anticipated at this time. CM team will continue to follow as needed GERARDO Miller Discharge Planning/Care Management CM Discharge Assessment Start: 07/27/24 12:07 Freq: Status: Active Protocol: Document 07/27/24 12:07 (Rec: 07/27/24 12:09 [id number]) Discharge Planning Assessment Assigned [employer] GERARDO Varghese DPOA/Assigned Designee Name jamar Deluca Contact Information [phone] Advance Directives? Yes Advance Directives on File Yes History Provided By Patient Prior Living Arrangements House Household Members spouse Type of transporation used prior to Drives own vehicle admit Independent with ADL's Yes Is patient alert and oriented? Yes Discharge Plan Home Referrals Initiated None needed Review Status In Process Please Provide Date Initial DC 07/27/24 Assessment Was Performed Next Review Type Continued Stay Review
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
--- NOTE | 2024-07-27 14:31 | P.DS_ITS ---
History of Present Illness History of Present Illness Chief complaint: stroke symptoms Narrative: From H&P: 71-year-old male with hypertension, hyperlipidemia, coronary artery disease status post CABGx 5 vessels in 2015, osteoporosis, urge incontinence, BPH, history of tobacco dependence (quit in 1989) who presented to the emergency department today complaining of right face, arm and leg numbness. Patient reports he was exercising today per his usual routine. Was walking on an incline on his treadmill at a somewhat vigorous pace. He followed that with lifting weights. Approximately 30 minutes later, he felt the right side of his face become warm, followed by his right arm and leg. He developed some numbness in his hand. He also complained to his of feeling a bit dizzy. He notes no previous history of these symptoms. His recently completed her BLS class and had teaching about stroke symptoms. She was not certain about the numbness but was able to look it up and found that this could be a stroke and subsequently had him sent to the emergency department. By the time he arrived in the emergency department, his NIH score was 1. Dr. Grant reported his findings were very minimal. He did have a slightly ataxic gait. On arrival temp was 97.3?, heart rate 52, BP 159/114, O2 sats 99% in room air. Over the course of his time in the emergency department, his heart rate 47-52. He reported baseline resting heart rate around 50 to 55. Over the course of the time in the emergency department, his symptoms completely resolved. Laboratories revealed a essentially normal CBC with exception of a slightly low lymphocyte count at 23% and slightly low eosinophil count at 1.4%. PT and INR were within normal limits. Chemistry panel within normal limits. Troponin I less than 0.012. UA was within normal limits. Urine toxicology screen was negative, alcohol level negative, COVID screen negative. Head CT revealed no acute intracranial hemorrhage. No acute intracranial pathology. CTA revealed 50% narrowing of the right internal carotid artery and 30-40% narrowing of the left proximal internal carotid artery. No significant intracranial arterial abnormality. No significant vertebral arterial abnormality noted. Echocardiogram from December of this year revealed an EF of 50- 55%, mid inferior hypokinesis, moderately dilated right ventricle, elevated right atrial pressure, mild tricuspid regurgitation, ckjz-hf-jwwyvele aortic regurgitation. EKG revealed a sinus bradycardia with a rate of 51, first-degree AV block with PACs. Currently, patient reports his symptoms have fully resolved. He does complain of intermittent leg cramps at night. He does take tizanidine for those when they happen. He has not taken any tizanidine for the last week and a half or 2. He does not take any rate-controlling medications. He states he did undergo a stress echo which he reports was within normal limits in March of this year. He also had a ZIO patch during which he did have symptoms but no events at the time he recorded symptoms. He was advised there were no other abnormalities or arrhythmias identified. He denies any lightheadedness since coming up to the floor. He has had heart rates in the 44-47 range with normal blood pressures documented. No chest pain, tightness or pressure. No shortness of breath. No nausea. No further neurologic symptoms. Discharge Providers Provider Date of admission: 07/26/24 14:03 Discharge Date: 07/27/24 Primary care physician: Kevon Street MD Consults: 07/26/24 15:40 Consult to Discharge Planning Routine Comment: 07/27/24 10:48 Consult to Discharge Planning Routine Comment: Consult to Occupational Therapy Evaluate & Treat Comment: Physician Instructions: Evaluate and treat Consult to Physical Therapy Evaluate & Treat Comment: Physician Instructions: Evaluate and Treat Consult to Speech Therapy Evaluate & Treat Comment: Physician Instructions: Evaluate and treat Discharge provider: Rony Ayala MD Summary Hospital Course Discharge Diagnosis: 1. TIA versus stroke, present on admission and improved. 2. Hypertension, present on admission and stable. Blood pressures have been normotensive to slightly hypertensive. Does not appear to be on any antihypertensives on an outpatient basis. Will continue to monitor. 3. Coronary artery disease, present on admission and stable. CAGB x 5. Well controlled. Continue aspirin, Crestor, nitroglycerin as needed. 4. Bradycardia, present on admission and stable. 5. Hyperlipidemia, present on admission and stable. Total cholesterol is 143, LDL 48, HDL 77, triglycerides 90. Well controlled on Crestor. Continue usual outpatient dose. Hospital Course: He was admitted with right face, arm, and leg numbness. He also had minor ataxia. Evaluation included a negative MRI. He would some sensation of isolation of symptoms of numbness over his right face and hand in the day of discharge. He does have a history of bypass x5 and a remote history of smoking. He will be treated with dual antiplatelet therapy, typically for 21 days in the setting. He was, however on chronic aspirin since his 5 way bypass. It may make sense to keep him on dual antiplatelet therapy for at least 21 days and then go to Plavix monotherapy. He was no history of cardiac stenting. His neurologic examination is fairly unremarkable in the day of discharge. He was have gait ataxia, but this is somewhat chronic according to him in his . Status at Discharge Cognitive/behavioral status at discharge: oriented Functional status at discharge: independent ambulation Overall status at discharge: patient is back to baseline Time Spent with Patient Time spent: Greater than 30 minutes Exam Vital Signs (past 8 hours): - 07/27/24 07:00 07/27/24 10:30 Temperature 96.5 F L Pulse Rate 48 L Respiratory Rate 15 Blood Pressure 131/44 L 146/57 H Pulse Oximetry 98 Oxygen Flow Rate 0 Oxygen Delivery Method Room Air Oxygen Flow Rate 0 Narrative Exam Narrative: NAD, alert and oriented. Fluent speech. Lungs are clear, normal rate and effort. Heart is regular, no murmur gallop or rub. Abdomen is soft, non distended. Extremities are free of edema. NEURO: Normal cranial nerves. MS 5/5 all extremities Normal pronator drift Unstable toe to heel Objective ECG Impression: Sinus bradycardia with 1st degree AV block with premature atrial complexes Possible Left atrial enlargement Minimal voltage criteria for LVH, may be normal variant ( Primghar product ) Cannot rule out Anterior infarct , age undetermined Imaging Multiple studies:: Radiologist's impression: Echo: Pending: MRI brain: 1. No acute infarction. No intracranial bleed, midline shift or mass effect. 2. Age related volume loss and moderate periventricular white matter small vessel chronic ischemic changes. 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 Head and neck CT: No significant intracranial arterial abnormality is seen. [id number]-zk-[id number] narrowing can be seen involving the proximal internal carotid arteries. No significant vertebral artery abnormality is seen. Additional findings: Gjex-gr-pjwnypfi cervical spine degenerative change Sternotomy wires Brain CT: No acute intracranial hemorrhage is seen. No acute intracranial pathology. Note: Case discussed by telephone with Dr. Mely Powers at 10:55 a.m. Darke time on July 26, 2024. Labs 07/27/24 05:30 07/27/24 05:30 Labs: Laboratory Results - last 24 hr 07/26/24 07/27/24 10:35 05:30 WBC 6.7 RBC 4.26 L Hgb 14.0 Hct 41.1 MCV 96.5 MCH 33.0 MCHC 34.2 RDW 13.2 Plt Count 178 Neut % (Auto) 57.0 Lymph % (Auto) 28.7 Mineral % (Auto) 12.1 Eos % (Auto) 1.9 L Baso % (Auto) 0.3 Neut # (Auto) 3800 Lymph # (Auto) 1900 Mineral # (Auto) 800 Eos # (Auto) 100 Baso # (Auto) 0 Sodium 137 Potassium 4.0 Chloride 106 Carbon Dioxide 26 BUN 21 H Creatinine 0.74 Estimated GFR > 60 BUN/Creatinine Ratio 28.4 H Glucose 99 Hemoglobin A1c 5.5 Calcium 9.3 Triglycerides 90 Cholesterol 143 LDL Cholesterol, Calc 48 HDL Cholesterol 77 H TSH 1.08 PFSH Medical History Decreased hearing Shoulder pain (~2003) Foot pain (~1999) Measles (~1953) Chicken pox (~1954) Frequent urination (~2020) Aortic stenosis (~1998) BPH w urinary obs/LUTS Chronic insomnia Primary osteoarthritis involving multiple joints (~2016) Mixed hyperlipidemia Overactive bladder History of tobacco use Urge incontinence Hx of osteoporosis Hx of coronary artery disease Coronary artery disease (~1998) Hyperlipidemia Surgical History Anesthesia History of hernia repair (~01/1970) History of cataract removal with insertion of prosthetic lens (~2020) Hx of vasectomy History of bladder surgery Hx of CABG (~2014) Family History Father Hyperlipidemia Congestive heart failure Sister Cerebral palsy Seizure Grandfather Asthma Social History marital status: details: (Sandrine), no children, 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 TIA versus stroke, present on admission and improved. 2. Hypertension, present on admission and stable. Blood pressures have been normotensive to slightly hypertensive. Does not appear to be on any antihypertensives on an outpatient basis. Will continue to monitor. 3. Coronary artery disease, present on admission and stable. CAGB x 5. Well controlled. Continue aspirin, Crestor, nitroglycerin as needed. 4. Bradycardia, present on admission and stable. 5. Hyperlipidemia, present on admission and stable. Total cholesterol is 143, LDL 48, HDL 77, triglycerides 90. Well controlled on Crestor. Continue usual outpatient dose. Discharge Plan Discharge Plan Patient Disposition: Home Discharge orders & Medications Prescriptions: New clopidogrel [Plavix] 75 mg tablet 75 mg PO DAILY Qty: 30 0RF Continued tizanidine 2 mg tablet 2 mg PO TID PRN (Reason: muscle spasticity) Qty: 60 5RF Co Q-10 300 mg capsule 300 mg PO BID Patient Comments: TAKES BID: 1 tab (300 mg) AM & 1 tab (300 mg) PM = total daily dose of 2 [id number] nitroglycerin 0.4 mg tablet, sublingual 0.4 mg sublingual Q5-15M PRN (Reason: chest pain) Patient Comments: PRN - has not needed to take it since about 2014 but keeps it renewed and available Myrbetriq 25 mg tablet extended release 24 hr 25 mg PO DAILY Patient Comments: PM rosuvastatin 40 mg tablet 40 mg PO DAILY Patient Comments: IN PM multivitamin [Daily Multi-Vitamin] Tablet 1 tab PO DAILY Patient Comments: PM -- 2000 units daily of VIT D3 tab/cap (1tab) & MVI that has 1000 units daily = total of 3000 units of VIT D DAILY) aspirin [[place] Aspirin] 81 mg tablet,chewable 81 mg PO DAILY cholecalciferol (vitamin D3) 25 mcg (1,000 unit) capsule 2,000 unit PO DAILY Rx Instructions: AM: just decreased to 1 tablet of vit d3 (*2000 units daily of VIT D3 tab/cap (1tab) & MVI that has 1000 units daily = total of 3000 units of VIT D DAILY) (previously took 2 tabs vit d3 and the mvi daily for a total of 5,000 units vit d3) Medication counseling provided by Pharmacist: No Follow up/Referrals: Kevon Street MD [Primary Care Provider] - Discharge Health Status Multidrug resistant organism: No MDRO Diet/Activity/Treatments Diet: Low-cholesterol Visit Report/Discharge Packet Instructions: Clopidogrel Stand Alone Forms: Patient Portal/API, Stroke Signs & Symptoms Discharge Data Primary Care Provider: Kevon Street V Attending Provider: Leatha Mora Admit Date/Time: 07/26/24 14:03
[2024-07-27 15:00] VITALS: BP 144/54; PULSE 49; RESP 15; TEMP 36.2; O2SAT 100
--- NOTE | 2024-07-27 15:30 | PC.NURSE ---
Discharge instructions reviewed with patient and he states understanding. He discussed his plan of care with Dr. Ayala at length, he has a follow up appointment scheduled with Dr. Street's office by case management. Patient declined wheelchair ride out, and ambulated out to main entrance for his to pick up and delivery driver.
== END 2024-07-27 15:15 | disposition home or self-care (01) ==
LOC: ED 13:20 → AC 07-27 07:11
PROVIDERS: Hospitalist; Admitting Provider Family Medicine; Emergency Provider Emergency Medicine; PCP Internal Medicine; Referring Provider Emergency Medicine; Visit Provider Family Medicine
DX: R20.0 Anesthesia of skin (principal); I25.10 Atherosclerotic heart disease of native coronary artery without angina pectoris; Z95.1 Presence of aortocoronary bypass graft; E78.5 Hyperlipidemia, unspecified; I10 Essential (primary) hypertension; R00.1 Bradycardia, unspecified; Z11.52 Encounter for screening for COVID-19
CPT/HCPCS: 36415; 70450; 70496; 70498; 70551; 80048; 80053; 80061; 80305; 80320; 81001; 82550; 82962; 83036; 84443; 84484; 85025; 85610; 85730; 87635; 93005; 93306; 97161; 97165; 97530; 97535; 99285; G0378; Q9967

== ENCOUNTER → 2025-01-05 09:14 | Outpatient (CLI) | payer MEDICARE, OTHER, SELFPAY ==
[2024-08-07 08:33] VITALS: BMI 25.1
== END ==
PROVIDERS: PCP Internal Medicine; Referring Provider Urology; Visit Provider Urology
DX: N40.1 Benign prostatic hyperplasia with lower urinary tract symptoms (principal)
CPT/HCPCS: 36415; 84153

== ENCOUNTER → 2025-01-14 16:14 | Outpatient (CLI) | payer MEDICARE, OTHER, SELFPAY ==
[2024-08-07 08:33] VITALS: BMI 25.1
[2025-01-14 16:59] LABS: Appearance Urine UA CLEAR; Bilirubin Urine UA NEGATIVE (NEGATIVE); Color Urine UA YELLOW; Glucose Urine UA NEGATIVE (Negative); Ketones Urine UA NEGATIVE (NEGATIVE); Leukocyte Esterase Urine UA NEGATIVE (NEGATIVE); Nitrite Urine UA NEGATIVE (Negative); Occult Blood Urine UA NEGATIVE (Negative); Protein Urine UA NEGATIVE (Negative); Urobilinogen Urine UA 0.2 E.U./dL (0.2)
[2025-01-14 17:10] LABS: Amorphous Sediment Urine 1+; Bacteria Urine None Seen; Culture Indicated Urine Cult Not Indicated; RBC Urine None Seen (0-5/HPF); Squamous Epithelial Cell Urine None Seen (0-5/HPF); Urine Volume 10mL (spun); WBC Urine None Seen (0-5/HPF)
== END ==
PROVIDERS: PCP Internal Medicine; Referring Provider Internal Medicine; Visit Provider Urology
DX: N40.1 Benign prostatic hyperplasia with lower urinary tract symptoms (principal)
CPT/HCPCS: 81001

== ENCOUNTER → 2025-01-21 08:57 | Outpatient (CLI) | payer MEDICARE, OTHER, SELFPAY ==
[2024-08-07 08:33] VITALS: BMI 25.1
== END ==
PROVIDERS: PCP Internal Medicine; Visit Provider Urology
DX: N40.1 Benign prostatic hyperplasia with lower urinary tract symptoms (principal)
CPT/HCPCS: 87086

== ENCOUNTER 2025-01-26 10:52 | Day surgery (SDC) | payer MEDICARE, OTHER, SELFPAY ==
[2024-08-07 08:33] VITALS: BMI 25.1
[2025-01-18 13:35] VITALS: BMI 24.0
[2025-01-26] VITALS (7 sets, daily range): BP systolic 116–135; BP diastolic 52–76; PULSE 47–67; RESP 13–17; TEMP 35.8–36.3; O2SAT 97–100; BMI 24.3
--- NOTE | 2025-01-26 | PATH_ITS ---
[facility] Accession Number: [id number] No. of containers..01 Tissue . 01 Material submitted: . prostate - PROSTATE CHIPS . 01 Diagnosis: PROSTATE CHIPS (4 GRAMS), TRANSURETHRAL RESECTION: Benign prostatic hyperplasia. No evidence of malignancy. [facility] 01/28/2025 1230 Local . 01 Electronically signed: . Danielle Kahn MD, Pathologist NPI- [id number] . 01 Gross description: . Received in formalin with two identifiers and prostate chips, are multiple arboleda soft tissue fragments with a small amount of hemorrhagic material and no stones identified, weighing 4 grams and aggregating to 5.0 x 4.6 x 1.2 cm. Submitted entirely in A1-A5. ([id number]) /V 01/28/2025 0558 Local . 01 Pathologist provided ICD-10: N40.0 . 01 CPT . 350588 Specimen Comment: A courtesy copy of this report has been sent to [facility] Performed at: [address] [address], [place], [place] [id number] MD Thai Ramos MD Phone: [phone]
[2025-01-26] MEDS: LACTATED RINGERS 1,000 ML 42 ML IV (11:38)
[2025-01-26] MEDS: ACETAMINOPHEN 325 MG TABLET 975 MG PO (11:38)
--- NOTE | 2025-01-26 12:10 | PM.PREOP ---
Pre-operative Note COVID-19 COVID-19 status: Not tested Interval Note History & Physical reviewed/Exam performed by Physician: Yes Changes to H&P: No
[2025-01-26] MEDS: levoFLOXacin 500 MG/100 ML PIGGYBACK 100 MG IV (13:37)
--- NOTE | 2025-01-26 14:00 | SUR.OPER ---
Lithotomy on padded OR bed, head on pillow, arms secured on padded arm boards at <90 degrees abduction. Legs secured in padded yellow fins stirrups.
--- NOTE | 2025-01-26 14:48 | P.OP_ITS ---
Operative Date/Time/Diagnoses Date of procedure: 01/26/25 Time of procedure: 13:45 Pre-op diagnosis: Benign prostatic hyperplasia with lower urinary tract symptoms Post-op diagnosis: same Procedure & Clinicians Procedure: Cystoscopy Aquablation Same procedure as scheduled: Yes Indications: 79 y/o M noted to have symptoms consistent w/ BPH and LUTS that are poorly managed with medical therapy and he strongly desires an Aquablation. Surgeon: Ok Zhao Click Yes if Unassisted: Yes Anesthesia Type: General Operative Notes Findings: Coaptating lateral prostatic lobes, no intravesical median lobe Closure Type: not applicable Specimen(s): other (prostate chips) Applied: catheter Estimated Blood Loss (mL): 20 Blood products transfused: none Procedure in detail: After informed consent was obtained, the patient was identified brought to the operating room where he was placed in his supine position on the table.? Once there anesthesia was induced and maintained.? Ensuring an adequate level of anesthesia the patient was transitioned to the lithotomy position where after time-out he was prepped.? After prepping, ensuring an adequate level of anesthesia, administration IV antibiotics and time-out 60 cc of ultrasound gel was instilled within the rectum and the ultrasound probe which had been attached to the TRUS stepper which was attached to the TRUS stepper articulating arm which was secured to the bed was advanced into the rectum under direct vision via the ultrasound.? The ultrasound probe was then aligned and confirmation made that the prostate was centered and aligned in both the sagittal and transverse views.? The bladder neck, verumontanum, central and transitional zones were identified.? With the ultrasound in place and adjusted the patient was then draped in a sterile fashion. With the patient draped the 24 [place] aqua beam handpiece was then inserted through the urethra and advanced into the bladder.? Cystoscopy was then performed and no concerning bladder mass or lesions were noted.? Bilateral ureteral orifices were noted to be orthotopic in nature.? As the cystoscope was advanced the level of the sphincter, verumontanum, bladder neck were all identified via ultrasound and under direct vision.? The aqua beam hand place was then secured to the handpiece articulating arm which had been secured to the bed.? The Aquablation handpiece and TRUS probe were confirmed to be parallel and colinear.? Confirmation was then made that the aqua beam handpiece and nozzle was centered and anterior to the bladder neck.? The cystoscope was then retracted under direct vision in the sphincter and verumontanum were identified.? The tip of the cystoscope was then placed proximal to the external sphincter.? Compression was applied with the TRUS probe to the prostate.? The alignment of the TRUS probe and aqua beam handpiece was once again confirmed.? Horizontal alignment of the handpiece water jet was then performed.? With these adjustments made, the treatment zones were then planned using real-time ultrasound.? In the largest transverse view of the prostate the depth and radial angles were determined and set again in the transverse view of the prostate.? In the longitudinal and sagittal view the Aquablation nozzle was identified and its position registered with the software and robot.? The treatment contours were then determined and adjusted to reflect the intended margins of resection.? Fo llowing our plan confirmation, the Aquablation resection treatment was started.? A 2nd pass was then completed in similar fashion after the 1st pass had been completed.? At this point, the Aqua hand piece was removed from the urethra. The 26Fr resectoscope was then inserted into the urethra and cystoscopy was repeated.? The [place] lean specialist was utilized to evacuate the blood clots from the bladder.? The bladder neck was then resected using the bipolar Gyrus loop.? Bilateral ureteral orifices were again identified and noted to be intact at case end.? Hemostasis was obtained and noted to be excellent at case end.? The resectoscope was then removed and a 24Fr [place] 3-way hematuria catheter was inserted through the urethra and into the bladder.? 45cc of sterile water was utilized for balloon insufflation.? Efflux was noted to be clear at case end.? Anesthesia was reversed, he was extubated in the OR and transferred to the PACU in stable condition for recovery. Complications: none Post-operative Condition: stable Disposition: PACU Plan for aftercare: Will continue to run CBI for a few hours to evaluate the efflux from his catheter.? Should it remain relatively clear and with minimal blood clots, will discharge home with catheter in place and have him return to Urology clinic in 2 days for a voiding trial.? Should his efflux remain red or have significant clot burden, will admit overnight for observation and continued CBI.
[2025-01-26] MEDS: PHENAZOPYRIDINE 100 MG TABLET 200 MG PO (16:07)
== END 2025-01-26 18:08 | disposition home or self-care (01) ==
PROVIDERS: PCP Internal Medicine; Referring Provider Urology; Visit Provider Urology
PROC: 0VT08ZZ Resection of Prostate, Via Natural or Artificial Opening Endoscopic (ICD-10-PCS; CPT 52597; principal; 2025-01-26 12:15)
DX: N40.1 Benign prostatic hyperplasia with lower urinary tract symptoms (principal); R39.12 Poor urinary stream; R35.1 Nocturia; R35.0 Frequency of micturition; R39.15 Urgency of urination; Z95.1 Presence of aortocoronary bypass graft; Z79.01 Long term (current) use of anticoagulants
CPT/HCPCS: 0421T; C2596; J0330; J1100; J1956; J2405; J2704; J3010; J3490

== ENCOUNTER → 2025-02-23 10:42 | Outpatient (CLI) | payer MEDICARE, OTHER, SELFPAY ==
[2025-02-17 16:31] VITALS: BMI 25.1
[2025-02-23 11:23] LABS: Hematocrit 41.4 % (41-53); Hemoglobin 14.4 g/dL (13.5-17.5); Mean Corpuscular HGB Conc 34.8 % (30-36); Mean Corpuscular Hemoglobin 33.2 PG (26-34); Mean Corpuscular Volume 95.6 fL (80-100); Platelet Count 219 X10^3/uL (150-400); Red Blood Cell Count 4.33 X10^6/uL (4.5-5.9); Red Cell Distribution Width 12.9 % (11.6-14.8)
[2025-02-23 11:40] LABS: Alanine Aminotransferase 26 IU/L (<50); Albumin 4.5 g/dL (3.5-5.0); Albumin Globulin Ratio 1.7 (1.0-2.8); Alkaline Phosphatase 83 U/L (38-126); Aspartate Aminotransferase 34 IU/L (17-59); BUN Creatinine Ratio 35.1 (6-22); Bilirubin Total 0.9 mg/dL (0.2-1.3); Blood Urea Nitrogen 26 mg/dL (9-20); Calcium 9.2 mg/dL (8.4-10.2); Carbon Dioxide 27 mmol/L (22-32); Chloride 104 mmol/L (98-107); Cholesterol 144 mg/dL (140-199); Estimated Glomerular Filt Rate > 60 mL/min (>60); Globulin 2.6 g/dL (1.7-4.1); Glucose 102 mg/dL (70-99); HDL Cholesterol 75 mg/dL (40-60); HEMOLYSIS < 15 (0-50); LDL Cholesterol Calculated 53 mg/dL (<100); Potassium 4.3 mmol/L (3.4-5.1); Sodium 138 mmol/L (137-145); Total Protein 7.1 g/dL (6.3-8.2); Triglycerides 80 mg/dL (35-150)
[2025-02-23 12:12] LABS: TSH w/ Reflex to FT4 0.76 uIU/mL (0.47-4.68)
== END ==
PROVIDERS: PCP Internal Medicine; Referring Provider Internal Medicine; Visit Provider Internal Medicine
DX: E78.2 Mixed hyperlipidemia (principal); I67.9 Cerebrovascular disease, unspecified
CPT/HCPCS: 36415; 80053; 80061; 84443; 85027

== ENCOUNTER → 2025-03-11 09:58 | Outpatient (CLI) | payer MEDICARE, OTHER, SELFPAY ==
[2025-02-17 16:31] VITALS: BMI 25.1
== END ==
PROVIDERS: PCP Internal Medicine; Visit Provider Urology
DX: N40.1 Benign prostatic hyperplasia with lower urinary tract symptoms (principal); N13.8 Other obstructive and reflux uropathy; N39.41 Urge incontinence; N32.81 Overactive bladder; Z12.5 Encounter for screening for malignant neoplasm of prostate
CPT/HCPCS: 51798; 81002; 87086; 99213

== ENCOUNTER → 2025-05-20 07:44 | Outpatient (CLI) | payer MEDICARE, OTHER, SELFPAY ==
[2025-02-17 16:31] VITALS: BMI 25.1
[2025-05-20 09:11] LABS: Alanine Aminotransferase 31 IU/L (<50); Albumin 4.3 g/dL (3.5-5.0); Albumin Globulin Ratio 1.8 (1.0-2.8); Alkaline Phosphatase 84 U/L (38-126); Blood Urea Nitrogen 30 mg/dL (9-20); Calcium 9.4 mg/dL (8.4-10.2); Carbon Dioxide 25 mmol/L (22-32); Chloride 103 mmol/L (98-107); Cholesterol 130 mg/dL (140-199); Estimated Glomerular Filt Rate > 60 mL/min (>60); Globulin 2.4 g/dL (1.7-4.1); Glucose 91 mg/dL (70-99); HDL Cholesterol 80 mg/dL (40-60); HEMOLYSIS < 15 (0-50); Potassium 4.4 mmol/L (3.4-5.1); Sodium 136 mmol/L (137-145); Total Protein 6.7 g/dL (6.3-8.2); Triglycerides 76 mg/dL (35-150)
== END ==
PROVIDERS: PCP Internal Medicine; Referring Provider Internal Medicine; Visit Provider Internal Medicine Cardiovascular Disease
DX: E78.00 Pure hypercholesterolemia, unspecified (principal)
CPT/HCPCS: 36415; 80053; 80061; 82172; 83721

== ENCOUNTER → 2025-07-17 13:30 | Outpatient (CLI) | payer MEDICARE, OTHER, SELFPAY ==
[2025-02-17 16:31] VITALS: BMI 25.1
[2025-07-17 14:26] LABS: Influenza A - CEPHEID Flu A NEGATIVE (NEGATIVE); Influenza B - CEPHEID Flu B NEGATIVE (NEGATIVE)
[2025-07-17 15:03] LABS: COVID-19 CEPHEID 4-PLEX PCR Negative (Negative)
== END ==
PROVIDERS: PCP Internal Medicine; Visit Provider Physician Assistant
DX: J02.9 Acute pharyngitis, unspecified (principal); R05.9 Cough, unspecified
CPT/HCPCS: 87070; 87637